=== PATIENT | female | born 1975 | race Caucasian/White ===

== ENCOUNTER → 2020-11-26 07:48 | Outpatient (CLI) | payer OTHER, SELFPAY | PROVIDERS: Internal Medicine Endocrinology, Diabetes & Metabolism; PCP Family Medicine; Referring Provider Nurse Practitioner Adult Health; Visit Provider Nurse Practitioner Adult Health | DX: E88.81 Metabolic syndrome and other insulin resistance (principal) | CPT/HCPCS: 36415; 82533 ==

== ENCOUNTER → 2021-12-12 | Outpatient (CLI) | payer OTHER, SELFPAY ==
--- NOTE | 2021-12-12 | IMM_PTH ---
PATIENT: JIE DOLAN [facility] U#:[id number] AGE/SX: 46/F ROOM: RE12/12/[address]: Dr. Alfonso Peres MD : 1975 BED: DIS: 12/12/2021 SPEC #: [id number] RECD: 12/12/21 12:41 STATUS: DENISE REQ #: [id number] AKIKO: 12/12/21 00:[address]: Alfonso Peres DEPT: IMMUNOHISTOCHEMISTRY RECD BY: Ginny Quintanilla ENTERED: 12/14/21 12:42 SP TYPE: IMMUNO OTHR DR: Francie West PA-C Tissues: Uterine cervix, NOS Procedures: p16 (initial) KI-67 (add) PHYSICIAN & INSTITUTION [place] [id number] SPECIMEN INFORMATION: Tissue Source: Four Quad Cervical Biopsy Clinical Info: LGSIL, HPV positive Specimen Number: [id number] CPT code: 83611, 84495 METHODOLOGY: Deparaffinized sections of prefer/formalin-fixed tissue or PAP/DQ stained slides are incubated with monoclonal/polyclonal antibodies/oligonucleotide probes. Localization is made via biotin free immunoperoxidase method. Appropriate controls are performed and reacted as expected. Results on target cell population are indicated in the following table: RESULTS: ANTIBODY / CLONE RESULT Block C P16 (E6H4) positive, patchy Ki-67 (30-9) positive, low These tests were developed and their performance characteristics determined by [facility]. They may not have been cleared or approved by the U.S. Food and Drug Administration. The FDA has determined that such clearance or approval is not necessary. The above immunohistochemical/dualISH markers are ordered and reviewed by the Pathologist. INTERPRETATION: Cervix, four quad biopsy: Consistent with mild squamous dysplasia, YUMIKO I (LSIL). AM:skip 12/15/2021
--- NOTE | 2021-12-12 14:00 | CER_PTH ---
PATIENT: JIE DOLAN LOC: [facility]#:[id number] AGE/SX: 46/F ROOM: RE12/12/[address]: Dr. Alfonso Peres MD : 1975 BED: DIS: 12/12/2021 SPEC #: [id number] RECD: 12/12/21 17:53 STATUS: DENISE REKell #: [id number] AKIKO: 12/12/21 14:[address]: Alfonso Peres DEPT: SURGICAL PATHOLOGY RECD BY: Ginny Quintanilla ENTERED: 12/13/21 09:39 SP TYPE: CERV OTHR DR: Francie West PA-C Tissues: A - Endocervical B - Uterine cervix, NOS C - Uterine cervix, NOS Procedures: Surgery Specimen Level IV HEADER OPERATION: Colposcopy PRE-OP DIAGNOSIS: LGSIL, HPV positive TISSUE SUBMITTED: A ? Endocervical curettage, B - Cervical polyp, C ? Four-quad cervical MICROSCOPIC DIAGNOSIS A. Endocervix, curettings: Strips of benign superficial endocervix. B. Cervical polyp, polypectomy: Fragments of benign endocervical polyp, inflamed. C. Cervix, four-quadrant biopsy: Mild squamous dysplasia, YUMIKO I (LSIL). Changes consistent with HPV cytopathic effect. See comment. AM:skip 12/14/2021 COMMENT C. Results from immunohistochemistry ([id number]) for surrogate HPV marker (p16) will be reported separately. Case has been reviewed in consultation with Dr. Oreilly who concurs with the above diagnosis. IDC:SJ MICROSCOPIC DESCRIPTION Slides are reviewed. GROSS DESCRIPTION A - Received in fixative is one container labeled with the patient's name and designated endocervical curettage. The specimen consists of multiple fragments of hemorrhagic soft tissue mixed with mucoid tissue that in aggregate measure 2 x 1.5 x 0.1 cm. The specimen is totally submitted in one cassette. B - Received in fixative is one container labeled with the patient's name and designated cervical polyp. The specimen consists of multiple fragments of abdi hemorrhagic mucoid tissue that in aggregate measure 2.5 x 2.5 x 0.2 cm. The specimen is totally submitted in one cassette. C - Received in fixative is one container labeled with the patient's name and designated four-quadrant cervical biopsy. The specimen consists of multiple irregular fragments of light abdi soft tissue that in aggregate measure 1.5 x 0.5 x 0.1 cm. The specimen is totally submitted in one cassette. / SJ:rg 12/13/2021 TC:3 CPT: 16713 x3
== END | disposition home or self-care (01) ==
LOC: LABSPEC 16:33
PROVIDERS: PCP Family Medicine; Visit Provider Obstetrics & Gynecology
DX: R87.612 Low grade squamous intraepithelial lesion on cytologic smear of cervix (LGSIL) (principal); R87.810 Cervical high risk human papillomavirus (HPV) DNA test positive
CPT/HCPCS: 88305; 88341; 88342

== ENCOUNTER 2022-05-15 17:30 | Outpatient (RCR) | payer OTHER, SELFPAY ==
--- NOTE | 2022-03-29 17:58 | HP.PTEVAL_ITS ---
Patient's Visit Information JIE BURGESS is a 46 year old F referred to Physical Therapy by Francie West PA-C with a diagnosis of Back pain with radiculopathy. Date of Evaluation: 03/29/22 Physical Therapist: Emmanuel Carlin, MAMTA, OCS, CSCS - Visit Plan Frequency: 2x /Week Duration: 4-6 Weeks Plan: Suspicious for R hip degenerative changes. 2x/week fro 3-6...please start with MH and rollout to quad adn ITB R, R hip mobs for rotation and extension and flexion and long leg pull. Stretch R hip into ext rotation. Teach hip stabs and mat core strength progressing to yoga stretches as tolerated. - Subjective I have SI joint problem. Sees chiropractor for last 3 months and massage therapist. Went to primary physician and ordered x rays and PT. I do crossfit and has had to scale back. Cannot do full squats. can do 2 days per week. More than that woud make me more painful. Bending down and up make her worse and floor work can make work. Hard to put R shoe on and cross R leg over left. Picking things up off floor is painful. has been hurting for 6-8 months, got worse beginning of summer. Tylenol and ibuprofen help. Sleep is OK, has had tough nights when she is more active. Just moved house and that was a trigger carrying boxes and bending alot. 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 Workout of day scaled at [employer]. Does that 2x/week. Walks quite a bit at work. [employer]uit [employer] at beginning of summer for a number of weeks and it did not help, she felt stiff and inflexible. Hard to get in and out of tub due to immobility. Gets tingly down R foot at times with wrong move like full squat or bend. Mobility bigger issue than pain. - Objective Walks today I without antalgia. Trasnfers I without pain. Steps reciprocally without pain. reflexes 2/3 patella and achilles. sensation WNL in LE to light touch. Strength LE 4+/5 without myotomal problems. core strength 4-/5,. LB AROM is mod limited in extension with some minor R SI pain, flexion is poor and painful R SI, tight, SB are full. flexibility is poor in quad and psoas B. R hip ROM very limited and pianful vs L in rotations 40 ext and 20 IR with pain vs 55 and 25 on L. Extension of hip is 2 degrees r and 5 L with pain R. flexion is 100 R with pain. all pain is posterior at hip today near si joint. SI joint testing is negative. - slump and - SLR. + JAMES and FADDIR on R - Balance/Special Test Scores Oswestry Low Back Score: 16 - Goals Goal 1:: put shoe on crossing leg R Goal Time Frame: 4-6 Weeks Goal 2:: Improve pain by 90% Goal Time Frame: 4-6 Weeks Goal 3:: Oswestry score 10 or less Goal Time Frame: 4-6 Weeks Goal 4:: Cross R leg to tie shoes without pain. Goal Time Frame: 4-6 Weeks Goal 5:: I approp HEP for LB ROM, hip ROM and flex and core and hip stab strength Goal Time Frame: 4-6 Weeks - Rehabilitation Potential Physical Therapy Diagnosis: pain and immobility limiiting gene potter for R hip degeneration Rehabilitation Potential: Fair - Anticipated Interventions Patient/Client Instruction: Educate patient on: Condition, Plan of Care For the Purpose of:: To decrease pain, To increase ROM, To improve muscle performance and motor function Therapeutic Exercise to Include: Strength training, Flexibilty training, Passive ROM, Dynamic Lumbar Stabilization For the Purpose of:: To decrease pain, To increase ROM, To improve nutrient delivery to tissue, To improve muscle performance and motor function Manual Therapy Techniques to Include: Mobilization, Passive ROM, Soft tissue mobilization For the Purpose of:: To increase ROM Thermo therapy (hot pack): Yes For the Purpose of:: To increase ROM, To improve nutrient delivery to tissue Thank you for the opportunity to evaluate your patient. For Medicare and Medicare HMO plans, please review the plan of care and approve it. It will need to be FAXED BACK to us at [phone] for Medicare purposes. For Medicare only, by signing this I certify the plan of care. Please let me know if there are questions or concerns regarding this plan of care. Physician Signature: Date:
--- NOTE | 2022-08-21 12:42 | HP.PT.NRP ---
JIE BURGESS was seen in my office for initial evaluation on 03/29/22. The following Plan of Care was established for this patient: Initial Frequency: 2x /Week Initial Duration: 4-6 Weeks Patient/Client Instruction: Educate patient on: Condition, Plan of Care For the Purpose of:: To decrease pain, To increase ROM, To improve muscle performance and motor function Therapeutic Exercise to Include: Strength training, Flexibilty training, Passive ROM, Dynamic Lumbar Stabilization For the Purpose of:: To decrease pain, To increase ROM, To improve nutrient delivery to tissue, To improve muscle performance and motor function Manual Therapy Techniques to Include: Mobilization, Passive ROM, Soft tissue mobilization For the Purpose of:: To increase ROM Thermo therapy (hot pack): Yes For the Purpose of:: To increase ROM, To improve nutrient delivery to tissue This patient was last seen in our office 05/15/22. Pertinent comments regarding their Physical therapy will appear below: Pt seen 13 visits and was 70% better at last check. She was to f/u 3 weeks later to ensure progress but did not show. At this point, it has been over two months and I will discontinue from my care. At this point I will be discontinuing this patient from physical therapy. I would be happy to see this patient again in the future if found appropriate by the physician. Thank you! Emmanuel Carlin, DPT, OCS, CSCS Balance/Gait/Functional tests - Balance/Special Test Scores Oswestry Low Back Score: 8
== END 2022-05-15 19:00 | disposition home or self-care (01) ==
LOC: PT 17:30
PROVIDERS: PCP Family Medicine; Referring Provider Family Medicine; Visit Provider Family Medicine
DX: M54.10 Radiculopathy, site unspecified (principal)
CPT/HCPCS: 97110; 97140; 97162; 97530

== ENCOUNTER → 2023-03-27 | Outpatient (CLI) | payer OTHER, SELFPAY ==
[2023-04-03 12:08] LABS: HPV APTIMA, High Risk Positive (Negative)
== END | disposition home or self-care (01) ==
LOC: LABSPEC 16:30
PROVIDERS: PCP Family Medicine; Visit Provider Student in an Organized Health Care Education/Training Program
DX: Z12.4 Encounter for screening for malignant neoplasm of cervix (principal)
CPT/HCPCS: 87624; 88175; G0145

== ENCOUNTER → 2023-04-22 | Outpatient (CLI) | payer OTHER, SELFPAY ==
--- NOTE | 2023-04-22 | IMM_PTH ---
PATIENT: JIE DOLAN LOC: [facility] U#:[id number] AGE/SX: 47/F ROOM: RE04/22/[address]: Dr. Anabell Keita DO : 1975 BED: DIS: 04/22/2023 SPEC #: [id number] RECD: 04/24/23 14:34 STATUS: DENISE REQ #: [id number] AKIKO: 04/22/23 00:[address]: Anabell Keita DEPT: IMMUNOHISTOCHEMISTRY RECD BY: Maricruz Mejia ENTERED: 04/24/23 14:35 SP TYPE: IMMUNO OTHR DR: Francie West PA-C Tissues: A - Uterine cervix, NOS B - Endocervical Procedures: p16 (initial) KI-67 (add) PHYSICIAN & INSTITUTION [place] [phone] SPECIMEN INFORMATION: Tissue Source: A - Cervix/endocervix, biopsy Clinical Info: N87.0, R87.810 Specimen Number: [id number] CPT code: 45727, 96676 METHODOLOGY: Deparaffinized sections of prefer/formalin-fixed tissue or PAP/DQ stained slides are incubated with monoclonal/polyclonal antibodies/oligonucleotide probes. Localization is made via biotin free immunoperoxidase method. Appropriate controls are performed and reacted as expected. Results on target cell population are indicated in the following table: RESULTS: ANTIBODY / CLONE RESULT Block A P16 (E6H4) positive, focal, patchy Ki-67 (30-9) positive, low These tests were developed and their performance characteristics determined by [facility]. They may not have been cleared or approved by the U.S. Food and Drug Administration. The FDA has determined that such clearance or approval is not necessary. The above immunohistochemical/dualISH markers are ordered and reviewed by the Pathologist. INTERPRETATION: A. Cervix/endocervix, biopsy: Focal HPV change present. AM:skip 04/25/2023
--- NOTE | 2023-04-22 | CER_PTH ---
PATIENT: JIE DOLAN LOC: [facility] U#:[id number] AGE/SX: 47/F ROOM: RE04/22/[address]: Dr. Anabell Keita DO : 1975 BED: DIS: 04/22/2023 SPEC #: [id number] RECD: 04/22/23 14:23 STATUS: DENISE REKell #: [id number] AKIKO: 04/22/23 00:[address]: Anabell Keita DEPT: SURGICAL PATHOLOGY RECD BY: Ginny Quintanilla ENTERED: 04/23/23 08:55 SP TYPE: CERV OT DR: Francie West PA-C Tissues: A - Uterine cervix, NOS B - Endocervical Procedures: Surgery Specimen Level IV HEADER OPERATION: Colposcopy, endocervical curettage PRE-OP DIAGNOSIS: N87.0, R87.810 TISSUE SUBMITTED: A - #1, B - #2 MICROSCOPIC DIAGNOSIS A. Cervix/endocervix, biopsy: Focal HPV change noted. See comment. B. Endocervix, curettings: Strips of benign superficial endocervix. AM:skip 04/24/2023 COMMENT A. Results from immunohistochemistry ([id number]) for surrogate HPV marker (p16) will be reported separately. MICROSCOPIC DESCRIPTION Slides are reviewed. GROSS DESCRIPTION A - Received in fixative is one container labeled with the patient's name and designated #1. The specimen consists of multiple irregular fragments of light abdi soft tissue that in aggregate measure 1.5 x 0.5 x 0.1 cm. The specimen is totally submitted in one cassette. B - Received in fixative is one container labeled with the patient's name and designated #2. The specimen consists of multiple irregular fragments of abdi-pink soft tissue mixed with mucoid tissue that in aggregate measure 2.5 x 1.0 x 0.1 cm. The specimen is totally submitted in one cassette. / RAJ:skip 04/23/2023 TC:3 CPT: 20360 x2
== END | disposition home or self-care (01) ==
PROVIDERS: PCP Family Medicine; Visit Provider Student in an Organized Health Care Education/Training Program
DX: N87.0 Mild cervical dysplasia (principal); R87.810 Cervical high risk human papillomavirus (HPV) DNA test positive
CPT/HCPCS: 88305; 88341; 88342

== ENCOUNTER 2025-08-11 13:26 | Emergency (ER) | payer OTHER, SELFPAY ==
[2025-08-11 13:27] VITALS: BP 148/84; PULSE 84; RESP 16; TEMP 35.6; O2SAT 98; BMI 44.1
--- NOTE | 2025-08-11 14:07 | EKG12_ITS ---
Test Reason : Blood Pressure : */* mmHG Vent. Rate : 73 BPM Atrial Rate : 73 BPM P-R Int : 140 ms QRS Dur : 80 ms QT Int : 396 ms P-R-T Axes : 47 44 11 degrees QTcB Int : 436 ms Normal sinus rhythm Nonspecific ST abnormality Abnormal ECG Confirmed by Rush Sim ([id number]), news video editor KRISTA ONTIVEROS ([id number]) on 08/16/2025 9:10:12 AM Referred By: Confirmed By: Rush Sim
[2025-08-11 14:27] LABS: Hematocrit 40.6 % (37-47); Hemoglobin 13.1 g/dL (12.0-15.0); Immature Granulocytes Count 0.040 X10^3/uL (0.0-0.0); Mean Corp Hgb Conc 32.3 g/dL (32-36); Mean Corpuscular Volume 80.4 fL (81-99); Mean Platelet Vol. 10.3 fl (6.2-12.0); NRBC Flagged by Analyzer 0 % (0-5); Platelet Count 408 K/mm3 (150-450); RBC Distribution Width CV 14.0 % (11.6-14.6); RBC Distribution Width SD 40.2 fl (35.1-43.9); Red Blood Count 5.05 M/mm3 (4.2-5.4); White Blood Count 9.7 K/mm3 (4.4-11.0)
[2025-08-11 15:00] LABS: Anion Gap 10 (7-18); BUN 10 mg/dL (4-19); BUN/Creat Ratio 13.3 RATIO (10-20); Calcium,Total 9.3 mg/dL (7.6-11.0); Carbon Dioxide 27.0 mmol/L (20.0-29.0); Chloride 103 mmol/L (96-106); Estimated Creatinine Clearance 105.72 ml/min (50-250); Glucose 125 mg/dL (70-99); Potassium 4.2 mmol/L (3.5-5.1)
[2025-08-11 15:23] VITALS: PULSE 76; RESP 17; O2SAT 98
[2025-08-11 15:41] VITALS: BP 134/84; BP 135/73; BP 140/80; PULSE 70; PULSE 75; PULSE 80
--- NOTE | 2025-08-11 15:41 | CT_ITS ---
PROCEDURE: CT BRAIN/HEAD WITHOUT CONTRAST; CTA HEAD AND NECK W/ CONTRAST 08/11/2025 REASON FOR EXAM: DIZZINESS TECHNIQUE: Procedure Code: CTBR; CTCTA.HDNCK Modality: CT Procedure: BRAIN/HEAD WITHOUT CONTRAST; CTA HEAD AND NECK W/ CONTRAST Coronal and Sagittal reconstructions were provided. 3D post processing was performed. 90 cc of Isovue 370 intravenous contrast was administered. One or more dose reduction techniques were used (e.g., Automated exposure control, adjustment of the mA and/or kV according to patient size, use of iterative reconstruction technique. RADIATION DOSE SUMMARY: DLP: 1473.61 mGycm COMPARISON: None. FINDINGS: CTA HEAD: Patent intracranial arterial vasculature. No large vessel occlusion, hemodynamically significant stenosis, saccular aneurysm, or vascular malformation identified. CTA NECK: Conventional aortic arch branching. Bilateral cervical carotid and codominant vertebral arteries are patent, normal in course and caliber. No stenosis, aneurysm or dissection. NONCONTRAST CT HEAD: No acute intracranial hemorrhage, extra-axial collection, mass effect or evidence of acute infarct. Ventricles and subarachnoid spaces are normal in size. Orbital contents are unremarkable. Intact skull base and calvarium. Clear paranasal sinuses and mastoid air cells. CT/Brain/Head without Contrast IMPRESSION: 1. No acute intracranial abnormality. 2. Normal CTA head/neck. No stenosis or other significant abnormality. Reading Location: [id number]
--- NOTE | 2025-08-11 15:41 | CT_ITS ---
PROCEDURE: CT BRAIN/HEAD WITHOUT CONTRAST; CTA HEAD AND NECK W/ CONTRAST 08/11/2025 REASON FOR EXAM: DIZZINESS TECHNIQUE: Procedure Code: CTBR; CTCTA.HDNCK Modality: CT Procedure: BRAIN/HEAD WITHOUT CONTRAST; CTA HEAD AND NECK W/ CONTRAST Coronal and Sagittal reconstructions were provided. 3D post processing was performed. 90 cc of Isovue 370 intravenous contrast was administered. One or more dose reduction techniques were used (e.g., Automated exposure control, adjustment of the mA and/or kV according to patient size, use of iterative reconstruction technique. RADIATION DOSE SUMMARY: DLP: 1473.61 mGycm COMPARISON: None. FINDINGS: CTA HEAD: Patent intracranial arterial vasculature. No large vessel occlusion, hemodynamically significant stenosis, saccular aneurysm, or vascular malformation identified. CTA NECK: Conventional aortic arch branching. Bilateral cervical carotid and codominant vertebral arteries are patent, normal in course and caliber. No stenosis, aneurysm or dissection. NONCONTRAST CT HEAD: No acute intracranial hemorrhage, extra-axial collection, mass effect or evidence of acute infarct. Ventricles and subarachnoid spaces are normal in size. Orbital contents are unremarkable. Intact skull base and calvarium. Clear paranasal sinuses and mastoid air cells. CT/CTA Head AND Neck W/ Contrast IMPRESSION: 1. No acute intracranial abnormality. 2. Normal CTA head/neck. No stenosis or other significant abnormality. Reading Location: [id number]
--- NOTE | 2025-08-11 15:53 | EX.ED.DYSGE1 ---
HPI History of Present Illness Chief Complaint: Dizziness Narrative Narrative: Chief complaint and HPI: 50-year-old female with past medical history of HTN, depression, anxiety presents for evaluation of dizziness. Patient states several weeks ago she had a viral illness of her sinuses. States this has since resolved. States she was washing her hair today when she turned her head and developed dizziness. She describes it as room spinning. Dizziness has already improved. Associated symptom is mild headache that radiates into her neck. Patient states a week ago she had a fall down 4 steps and since then has been having muscle soreness in her back as well as her neck. States symptoms are already improving. She denies any fever, chills, shortness of breath, chest pain, abdominal pain, nausea, vomiting, weakness, focal deficits, numbness or tingling. Review of systems: See HPI Medications: As listed on the chart Allergies: As listed on the chart PFSH: Per chart Vital signs: As listed on the chart. Reviewed. Physical exam: Gen: A&O x3, NAD Head: Normocephalic, atraumatic Eyes: No sclera icterus, conjunctiva clear, PERRL, EOMI, no nystagmus-none with positional changes well ENT: TMs clear BL, moist mucous membranes, posterior oropharynx unremarkable, uvula midline, tonsils not enlarged, no facial asymmetry Neck: Trachea midline, No JVD, Full ROM, No meningismus, no midline spinal tenderness, no bony step-offs CV: RRR, no murmurs, no peripheral edema Resp: Lungs CTA BL, no w/r/c GI: Abd soft, non-distended, non-tender, no r/r/g Musc: Full ROM, no deformity, strength +5/5 in all extremities, no pronator drift, no ataxia Skin: Warm, dry Neuro: Alert, oriented, grossly intact, sensation intact, no focal deficits Psych: Cooperative, appropriate mood and affect [facility] Medical History (Updated 08/11/25 @ 15:13 by Leny Loredo) HTN (hypertension) Depression Anxiety Allergy/AdvReac Type Severity Reaction Status Date / Time No Known Allergies Allergy Verified 08/11/25 13:27 Social History (Updated 08/11/25 @ 15:13 by Leny Loredo) household members: spouse Smoking Status: Never smoker EXAM Physical Exam Const Vital Signs: 08/11/25 13:27 08/11/25 15:14 08/11/25 15:23 Temperature 96.0 F L Temperature Source Temporal Pulse Rate 84 76 Pulse Rate [Lying] Pulse Rate [Sitting (for 1 minute prior to obtaining)] Pulse Rate [Standing (for 1 minute prior to obtaining)] Respiratory Rate 16 17 Blood Pressure 148/84 H Blood Pressure [Lying] Blood Pressure [Sitting (for 1 minute prior to obtaining)] Blood Pressure [Standing (for 1 minute prior to obtaining)] Blood Pressure Mean 105 Blood Pressure Mean [Lying] Blood Pressure Mean [Sitting (for 1 minute prior to obtaining)] Blood Pressure Mean [Standing (for 1 minute prior to obtaining)] Pulse Ox 98 98 Oxygen Delivery Method Room Air Room Air Room Air 08/11/25 15:41 08/11/25 17:00 Temperature Temperature Source Pulse Rate 71 Pulse Rate [Lying] 70 Pulse Rate [Sitting (for 1 minute prior to obtaining)] 75 Pulse Rate [Standing (for 1 minute prior to obtaining)] 80 Respiratory Rate 16 Blood Pressure 140/80 H Blood Pressure [Lying] 140/80 H Blood Pressure [Sitting (for 1 minute prior to obtaining)] 135/73 H Blood Pressure [Standing (for 1 minute prior to obtaining)] 134/84 H Blood Pressure Mean 100 Blood Pressure Mean [Lying] 100 Blood Pressure Mean [Sitting (for 1 minute prior to obtaining)] 93 Blood Pressure Mean [Standing (for 1 minute prior to obtaining)] 100 Pulse Ox 98 Oxygen Delivery Method MDM MDM MDM Narrative Medical decision making narrative: 50-year-old female with past medical history of HTN, depression, anxiety presents for evaluation of dizziness. Patient states several weeks ago she had a viral illness of her sinuses. States this has since resolved. States she was washing her hair today when she turned her head and developed dizziness. She describes it as room spinning. Dizziness has already improved. Associated symptom is mild headache that radiates into her neck. Patient states a week ago she had a fall down 4 steps and since then has been having muscle soreness in her back as well as her neck. States symptoms are already improving. She denies any fever, chills, shortness of breath, chest pain, abdominal pain, nausea, vomiting, weakness, focal deficits, numbness or tingling. On presentation, patient no acute distress. See physical exam findings. Differential diagnosis includes but is not limited to peripheral vertigo, electrolyte abnormality, dehydration, anemia, arrhythmia, UTI, suspect less likely intracranial abnormality or central process. NS bolus and meclizine ordered. Laboratory workup ordered including imaging of the head. CBC without leukocytosis or anemia. Platelets unremarkable. BMP unremarkable. Magnesium unremarkable. CT of the head negative for any acute intracranial abnormality. CTA head and neck without any stenosis or significant abnormality. Orthostatic vital signs negative. UA positive for UTI however this is not the cleanest sample with 10-25 squamous epithelial cells. Patient not having any UTI symptoms. I discussed the benefits of treatment versus culture. Patient opted for culture. Will not treat at this time. Troponin unremarkable x 2. Patient ambulated without difficulty. On reevaluation her dizziness has resolved. Suspect peripheral vertigo. Recommend following up with primary care physician. Return back to ED symptoms change or worsen. Will give prescription for meclizine. Patient affirmed understand the plan. Patient stable to discharge home. EKG: Interpreted by me/EM physician: EKG shows normal sinus rhythm with nonspecific ST changes. Heart rate 73. No QTc prolongation. Diagnostic: Interpreted by me/EM physician: Chest x-ray with cardiomegaly. No pneumonia, pneumothorax, effusion. Radiology in agreement. Impression: 1. Vertigo Lab Data Labs: Laboratory Results - last 24 hr 08/11/25 08/11/25 08/11/25 14:13 16:01 16:40 WBC 9.7 RBC 5.05 Hgb 13.1 Hct 40.6 MCV 80.4 L MCH 25.9 L MCHC 32.3 RDW Std Deviation 40.2 RDW Coeff of [place] 14.0 Plt Count 408 MPV 10.3 Immature Gran % (Auto) 0.400 Neut % (Auto) 78.5 H Lymph % (Auto) 15.3 L [place] % (Auto) 4.8 Eos % (Auto) 0.7 Baso % (Auto) 0.3 Absolute Neuts (auto) 7.6 Absolute Lymphs (auto) 1.48 Nucleated RBC % 0 Sodium 140 Potassium 4.2 Chloride 103 Carbon Dioxide 27.0 Anion Gap 10 BUN 10 Creatinine 0.77 Estim Creat Clear Calc 105.72 Est GFR (MDRD) Non-Af 95 BUN/Creatinine Ratio 13.3 Glucose 125 H Calcium 9.3 Magnesium 2.0 Troponin T High Sens < 6 Troponin T Hi Sens 2 Hr < 6 Urine Color Yellow Urine Clarity Cloudy Urine pH 6.0 Ur Specific [place] 1.020 Urine Protein 15 H Urine Glucose (UA) Normal Urine Ketones Negative Urine Occult Blood Negative Urine Nitrite Negative Urine Bilirubin Negative Urine Urobilinogen Normal Ur Leukocyte Esterase 500 H Urine RBC 0-5 SEEN Urine WBC 25-50 SEEN Ur Squamous Epith Cells 10-25 SEEN Urine Bacteria 2+ Urine Mucus 0 SEEN Radiography Diagnostic Testing: Clinical Impression(s) from Imaging Studies Brain CT 08/11/25 15:41 IMPRESSION: 1. No acute intracranial abnormality. 2. Normal CTA head/neck. No stenosis or other significant abnormality. Reading Location: [facility] Head/Neck CTA 08/11/25 15:41 IMPRESSION: 1. No acute intracranial abnormality. 2. Normal CTA head/neck. No stenosis or other significant abnormality. Reading Location: [facility] Chest X-Ray 08/11/25 16:10 IMPRESSION: Cardiomegaly. No acute pulmonary disease. Reading Location: [facility] Discharge Plan Triage Chief Complaint: Dizziness Other Complaint: Headache ED Provider: Mario Tesfaye Dx/Rx/DC Orders Primary Care Provider: Francie West Referrals: Francie West PA-C [Primary Care Provider, Medical] Print Language: Palestinian
--- OUTSIDE RECORDS SUMMARY | 2025-08-11 15:53 | XMS RPT_ITS | CCD ---
Author Organization [facility] CliniSypr Care Team Providers Care Litigation Legal Secretary Name Role Phone TOM Gilbert Primary Care Provider TOM Gilbert Referring Provider DIANA Khalil Attending Provider [phone] [place] Francie ORTIZ Primary Care Unavailable Anabell Keita Attending Unavailable Anabell Keita Attending Unavailable Francie Gilbert Primary Care Unavailable Anabell Keita Attending Unavailable Anabell Keita Referring Unavailable Francie Gilbert Primary Care Unavailable Unavailable Primary Care Provider Unavailabl e BRETT, FRANCIE Admitting Unavailable EARLVILLE, FRANCIE Primary Care Unavailable EARLVILLE, FRANCIE Consulting Unavailable EARLVILLE, FRANCIE Attending Unavailable PROVIDER, UNKNOWN Consulting Unavailable EARLVILLE, FRANCIE Primary Care Unavailable EARLVILLE, FRANCIE Consulting Unavailable EARLVILLE, FRANCIE Attending Unavailable EARLVILLE, FRANCIE Admitting Unavailable PROVIDER, UNKNOWN Consulting Unavailable ADIA POTTERY MACHINE OPERATOR, DIOR MENENDEZ Attending Unavaila ble PHYSICIAN, NOT RECORDED Primary Care Unavaila Joon Wyatt Attending Provider [place] Francie SANTOS Primary Care Provider Brett SANTOS, Francie Attending Provider [phone] Brett SANTOS, Francie Referring Provider Joon Olivas Attending Unavailable [place] Francie ORTIZ Referring Unavailable [place] DIANA, Francie Primary Care Unavailable [place] Francie ORTIZ Attending Unavailable SAVI ANNE Attending Unavailable SAVI ANNE Referring Unavailable [place] Francie ORTIZ Primary Care Unavailable EARNESTINE ZHAO Referring Unavailable BORA SENIOR Attending Unavailable SONJA MATAMOROS Referring Unavailable SONJA MATAMOROS Attending Unavailable Medications Current Medications Medication Drug Class(es) Dates Sig (Normalized) Sig (Original) amoxicillin 500 mg oral tablet (1 source) Penicillin-class Antibacterial Start: 08-03-2024 take 1 tablet by mouth three times daily Amoxicillin 500 mg tablet Active 500 mg PO THREE TIMES A DAY August 03, 2024 1:00am ARIPiprazole 5 mg oral tablet (15 sources) Atypical Antipsychotic Start: 02-14-2024 take 1 tablet by mouth once ARIPiprazole (ABILIFY) 5 mg tablet Take 1 tablet by mouth every afternoon. 02/14/2024 Active FLUoxetine 40 mg oral capsule (15 sources) Serotonin Reuptake Inhibitor Start: 02-14-2024 take 1 capsule by mouth once FLUoxetine (PROZAC) 40 mg capsule Take 1 capsule by mouth every afternoon. 02/14/2024 Active 24 hr metFORMIN hydrochloride 500 mg extended release oral tablet (15 sources) Biguanide Start: 08-03-2024 Metformin 500 mg tablet extended release 24 hr Active 1000 mg PO TWICE A DAY August 03, 2024 1:00am Start: 02-14-2024 [facility] metFORMIN ER (GLUCOPHAGE XR) 500 mg 24 hr tablet Take 2 tablets by mouth every 12 hours. 02/14/2024 Active 24 hr metoprolol succinate 50 mg extended release oral tablet (15 sources) beta-Adrenergic Claudia Start: 08-03-2024 take 1 tablet by mouth once daily Metoprolol Succinate 50 mg tablet extended release 24 hr Active 50 mg PO daily August 03, 2024 1:00am Start: 02-14-2024 take 1 tablet by katherine every hour metoprolol succinate ER (TOPROL XL) 50 mg 24 hr tablet Take 1 tablet by mouth every afternoon. 02/14/2024 Active spironolactone 50 mg oral tablet (15 sources) Aldosterone Antagonist Start: 08-03-2024 take 1 tablet by mouth twice daily Spironolactone 50 mg tablet Active 50 mg PO TWICE A DAY August 03, 2024 1:00am Start: 02-14-2024 take 1 tablet by katherine th every twelve hours spironolactone (ALDACTONE) 50 mg tablet Take 1 tablet by mouth every 12 hours. 02/14/2024 Active valACYclovir 1000 mg oral tablet (1 source) Herpesvirus Nucleoside Analog DNA Polymerase Inhibitor, Herpes Simplex Virus Nucleoside Analog DNA Polymerase Inhibitor, Herpes Zoster Virus Nucleoside Analog DNA Polymerase Inhibitor Start: 02-08-2025 End: 02-18-2025 take 1 tablet by mouth twice daily valACYclovir (VALTREX) 1 gram tablet Take 1 tablet by mouth two times a day for 10 days. 20 tablet 02/08/2025 02/18/2025 Active Completed/Discontinued Medications Medication Drug Class(es) Dates Sig (Normalized) Sig (Original) amoxicillin 875 mg / clavulanate 125 mg oral tablet (3 sources) Penicillin-class Antibacterial Start: 06-18-2021 End: 06-28-2021 take 1 tablet by mouth twice daily at mealtime Amoxicillin-Pot Clavulanate (Augmentin) 875-125 mg tablet Discontinued 1 TABLET PO TWICE A DAY 31 05June 18, 2021 12:00am June 28, 2021 1:01am take with food sertraline 100 mg oral tablet (1 source) Serotonin Reuptake Inhibitor End: 04-16-2024 take 1 tablet by mouth once daily sertraline (ZOLOFT) 100 mg ORAL tablet Take one(1) tablet daily. 04/16/2024 Discontinued (Other) Problems Active Problems Problem Classification Problem Date Documented Date Episodic/Chronic Diabetes mellitus without complication (1 source) Impaired fasting glucose; Translations: [Impaired fasting glucose] Onset: 01-18-2025 Episodic Disorders of lipid metabolism (2 sources) Pure hyperglyceridemia; Translations: [Pure hyperglyceridemia] Onset: 09-22-2024 Chronic Essential hypertension (1 source) Essential (primary) hypertension; Translations: [Essential (primary) hypertension] Onset: 09-22-2024 Chronic Genitourinary symptoms and ill-defined conditions (1 source) Unspecified symptoms and signs involving the genitourinary system; Translations: [Unspecified symptoms and signs involving the genitourinary system] Onset: 09-22-2024 Episodic Immunizations and screening for infectious disease (6 sources) Patient encounter status; Translations: [Encounter for screening for COVID-19] 06-18-2021 Episodic Nutritional deficiencies (1 source) Vitamin D deficiency, unspecified; Translations: [Vitamin D deficiency, unspecified] Onset: 01-18-2025 Chronic Other endocrine disorders (1 source) Polycystic ovarian syndrome; Translations: [Polycystic ovarian syndrome] Onset: 01-18-2025 Chronic Other female genital disorders (1 source) Mild cervical dysplasia; Translations: [Mild cervical dysplasia] Onset: 06-27-2023 Episodic Other nutritional; endocrine; and metabolic disorders (1 source) Severe obesity; Translations: [Morbid (severe) obesity due to excess calories] 04-16-2024 Chronic Other screening for suspected conditions (not mental disorders or infectious disease) (9 sources) Encounter for screening mammogram for malignant neoplasm of breast; Translations: [Encounter for screening for malignant neoplasm of cervix] Onset: 06-10-2023 04-16-2024 Episodic Other skin disorders (1 source) Hirsutism; Translations: [Hirsutism] Onset: 01-18-2025 Episodic Other upper respiratory infections (3 sources) Sinusitis; Translations: [Chronic sinusitis, unspecified] 06-18-2021 Chronic Viral infection (2 sources) 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; Translations: [Herpesviral vulvovaginitis] Onset: 02-08-2025 02-08-2025 Chronic Viral infection (4 sources) Disease caused by 2019-nCoV; Translations: [COVID-19] Episodic Past or Other Problems Problem Classification Problem Date Documented Date Episodic/Chronic Cancer of cervix (15 sources) Low grade squamous intraepithelial lesion on cervical Papanicolaou smear; Translations: [Low grade squamous intraepithelial lesion on cytologic smear of cervix (LGSIL)] Onset: 03-12-2023 04-17-2024 Episodic Sexually transmitted infections (not HIV or hepatitis) (12 sources) Human papillomavirus deoxyribonucleic acid test positive, high risk on cervical specimen; Translations: [Cervical high risk human papillomavirus (HPV) DNA test positive] Onset: 04-24-2024 04-16-2024 Episodic Results Test Name Value Interpretation Reference Range Facility [facility] 2024 [facility] * * *Final Report* * * DATE OF EXAM: May 18 2025 3:52PM [id number] - [facility] / PROCEDURE REASON: Abnormal mammogram * * * * Physician Interpretation * * * * RESULT: [place] [address] #[id number] - [facility]ARDIN #[id number] - CEM US BREAST LTD RT HISTORY: 49 year-old patient presents for diagnostic evaluation of the finding(s) described on prior mammogram in the right breast. Patient is asymptomatic in the left breast. Patient states no personal history of breast cancer. COMPARISON STUDIES: The present examination has been compared to prior imaging studies dated 04/17/2024 (mammogram), 05/13/2024 (ultrasound) and 05/13/2024 (mammogram). MAMMOGRAM TECHNIQUE: The study was acquired using full field digital technology and interpreted from soft copy. Digital Breast Tomosynthesis (DBT) images were obtained and used to assist in the interpretation of this examination. MAMMOGRAM FINDINGS: The breasts are heterogeneously dense, which may obscure small masses. Finding 1: There are multiple scattered punctate calcifications in the upper outer quadrant of the right breast. Finding 2: There is a stable asymmetry in the anterior depth inferior left breast. This likely represents fibroglandular tissue. ULTRASOUND TECHNIQUE: Targeted ultrasound of the indicated area was performed. Ibarra scale images were saved. ULTRASOUND FINDINGS: Finding 3: There is a stable oval parallel mass with circumscribed margins measuring 0.7 cm at 5 o'clock, 5 cm from the nipple in the right breast. Internal echotexture is hypoechoic. This resembles a fibroadenoma. IMPRESSION: Finding 1: The calcifications in the upper outer quadrant of the right breast are probably benign. Follow-up with diagnostic mammogram is recommended in 6 months. Finding 2: The stable asymmetry in the anterior depth inferior left breast is probably benign. This likely represents fibroglandular tissue. Follow-up with diagnostic mammogram is recommended in 6 months. Finding 3: The 0.7 cm oval parallel mass in the right breast at 5 o'clock, 5 cm from the nipple is probably benign. This resembles a fibroadenoma. Follow-up with diagnostic mammogram and ultrasound is recommended in 6 months. BI-RADS Category 3: Probably Benign RISK: Based on the Tyrer-Cuzick (TC) risk assessment model, this patient has a 11.3% lifetime risk of developing breast cancer, meaning they are at average risk for developing breast cancer. However, this is only an estimate based on available history provided on the patient's questionnaire. We encourage all patients to talk with their providers about these results, further recommendations for managing breast health, and appropriate supplemental screening options if the patient has dense breast tissue. Interpreting Radiologist: Bairon Berg M.D. Electronically signed on: 05/18/2025 Automobile Damage Appraiser: MELLISA Transcribe Date/Time: May 18 2025 3:13P Dictated by: BAIRON BERG MD This examination was interpreted and the report reviewed and electronically signed by: BAIRON BERG MD on May 18 2025 4:32PM EST [id number] Normal [facility] US BREAST LTD RTon 05-18 [facility] US BREAST LTD RT * * *Final Report* * * DATE OF EXAM: May 18 2025 4:22PM [id number] - [facility] US BREAST LTD RT / PROCEDURE REASON: Abnormal mammogram * * * * Physician Interpretation * * * * [place] [address] #[id number] - [facility] DIAG W AUDREY WILFRED #[id number] - [facility] [employer] BREAST [email or web address] RT HISTORY: 49 year-old patient presents for diagnostic evaluation of the finding(s) described on prior mammogram in the right breast. Patient is asymptomatic in the left breast. Patient states no personal history of breast cancer. COMPARISON STUDIES: The present examination has been compared to prior imaging studies dated 04/17/2024 (mammogram), 05/13/2024 (ultrasound) and 05/13/2024 (mammogram). MAMMOGRAM TECHNIQUE: The study was acquired using full field digital technology and interpreted from soft copy. Digital Breast Tomosynthesis (DBT) images were obtained and used to assist in the interpretation of this examination. MAMMOGRAM FINDINGS: The breasts are heterogeneously dense, which may obscure small masses. Finding 1: There are multiple scattered punctate calcifications in the upper outer quadrant of the right breast. Finding 2: There is a stable asymmetry in the anterior depth inferior left breast. This likely represents fibroglandular tissue. ULTRASOUND TECHNIQUE: Targeted ultrasound of the indicated area was performed. Ibarra scale images were saved. ULTRASOUND FINDINGS: Finding 3: There is a stable oval parallel mass with circumscribed margins measuring 0.7 cm at 5 o'clock, 5 cm from the nipple in the right breast. Internal echotexture is hypoechoic. This resembles a fibroadenoma. IMPRESSION: Finding 1: The calcifications in the upper outer quadrant of the right breast are probably benign. Follow-up with diagnostic mammogram is recommended in 6 months. Finding 2: The stable asymmetry in the anterior depth inferior left breast is probably benign. This likely represents fibroglandular tissue. Follow-up with diagnostic mammogram is recommended in 6 months. Finding 3: The 0.7 cm oval parallel mass in the right breast at 5 o'clock, 5 cm from the nipple is probably benign. This resembles a fibroadenoma. Follow-up with diagnostic mammogram and ultrasound is recommended in 6 months. BI-RADS Category 3: Probably Benign RISK: Based on the Tyrer-Cuzick (TC) risk assessment model, this patient has a 11.3% lifetime risk of developing breast cancer, meaning they are at average risk for developing breast cancer. However, this is only an estimate based on available history provided on the patient's questionnaire. We encourage all patients to talk with their providers about these results, further recommendations for managing breast health, and appropriate supplemental screening options if the patient has dense breast tissue. Interpreting Radiologist: Bairon Berg M.D. Electronically signed on: 05/18/2025 Automobile Damage Appraiser: MELLISA Transcribe Date/Time: May 18 2025 4:09P Dictated by : BAIRON BERG MD This examination was interpreted and the report reviewed and electronically signed by: BAIRON BERG MD on May 18 2025 4:32PM EST [id number] Normal [facility] CNOVon 02-08-2025 CNOV Office Visit (OBGYWM ) TOMA ADAMS ([id number]) 1975 F Date Time Provider Department 02/08/25 11:10 AM BORA SENIOR OBGYWM During your visit today, we recorded the following information about you: Blood pressure Weight Last Period 142/84 110.2 kg 11/11/23 Bora Senior MD 02/08/2025 11:23 AM Signed Business Support Assistant offered: Patient accepts, visit chaperoned by Michelle Momin MA. Toma Adams is a 49 year old female who presents for problem visit with a 10 day hx of a painful labial lesion on the left labia. . 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 History Comments: Sexual Activity: Yes; Male Contraception: Not used PAST MEDICAL HISTORY Diagnosis Date Cervical high risk HPV (human papillomavirus) test positive 04/03/2023 LGSIL on Pap smear of cervix 04/03/2023 PAST SURGICAL HISTORY Procedure Laterality Date PAST SURGICAL HISTORY OF sphincterplasty PAST SURGICAL HISTORY OF Left wrist surgery VAGINOSCOPY 04/2023 negative FAMILY HISTORY Problem Relation Age of Onset Diabetes Mother Hypertension Father Cancer Maternal Grandmother Cancer Maternal Grandfather Cancer Paternal Grandmother Cancer Paternal Grandfather Social History Tobacco Use Smoking status: Never Smokeless tobacco: Never Vaping Use Vaping status: Never Used Substance Use Topics Alcohol use: No Drug use: No Current Outpatient Medications Medication Sig spironolactone (ALDACTONE) 50 mg tablet Take 1 tablet by mouth every 12 hours. metoprolol succinate ER (TOPROL XL) 50 mg 24 hr tablet Take 1 tablet by mouth every afternoon. ARIPiprazole (ABILIFY) 5 mg tablet Take 1 tablet by mouth every afternoon. metFORMIN ER (GLUCOPHAGE XR) 500 mg 24 hr tablet Take 2 tablets by mouth every 12 hours. FLUoxetine (PROZAC) 40 mg capsule Take 1 capsule by mouth every afternoon. No current facility-administered medications for this visit. Allergies As of Date: 02/08/2025 (No Known Allergies) Fully Assessed 02/08/2025 REVIEW OF SYSTEMS Abdomen: No bloating, early satiety, indigestion, or increased flatulence. No abdominal pain, nausea, vomiting, diarrhea, or constipation. Bladder: No dysuria, gross hematuria, urinary frequency, urinary urgency, or incontinence. Breast: No breast lumps, nipple d/c, overlying skin changes, redness or skin retraction. Expanded ROS: N/A Allergies and current medication updated:Yes SENSITIVE EXAM: The sensitive examination was discussed with the Patient or Patient's Authorized Robotics Specialist. As applicable, any other physician, advance practice provider, medical student, or other health professional student that will be observing or involved in the sensitive examination for educational or training purposes was discussed with the Patient or Authorized Robotics Specialist. The Patient or Authorized Robotics Specialist has agreed to proceed with the sensitive examination. (Sensitive examination includes inspection and/or palpation of the breasts, pelvis, prostate and anorectal regions). EXAM: BP 142/84 Wt 243 lb (110.2kg) LMP 11/11/2023 GENERAL: pleasant, female in no apparent distress external genitalia with herpetic appearing lesion on the left labia major. ASSESSMENT AND PLAN: Herpes culture Valtrex pending culture Assessment AND Plan Bora Senior MD Allergies As of Date: 02/08/2025 (No Known Allergies) Date Reviewed: 02/08/2025 Reviewed by: Michelle Momin MA - Fully Assessed Reason for Visit: Vaginal Problem [117] Primary Visit Diagnosis:Herpes, vulvar [A60.04] Order(s):HERPES SIMPLEX VIRUS (HSV-1 AND HSV-2) AND VARICELLA ZOSTER VIRUS (VZV), NAAT, LESION SWAB [SQHSVVZV] Order #: [id number] FUTURE valACYclovir (VALTREX) 1 gram tabletTake 1 tablet by mouth two times a day for 10 days.Disp: 20 tabletRfl: 0 HERPES SIMPLEX VIRUS (HSV-1 AND HSV-2) AND VARICELLA ZOSTER VIRUS (VZV), NAAT, LESION SWAB [[id number]] Order #: [id number]. #:[id number] Prescriptions as of 02/08/2025 - valACYclovir (VALTREX) 1 gram tablet Take 1 tablet by mouth two times a day for 10 days. - spironolactone (ALDACTONE) 50 mg tablet Take 1 tablet by mouth every 12 hours. - metoprolol succinate ER (TOPROL XL) 50 mg 24 hr tablet Take 1 tablet by mouth every afternoon. - ARIPiprazole (ABILIFY) 5 mg tablet Take 1 tablet by mouth every afternoon. - metFORMIN ER (GLUCOPHAGE XR) 500 mg 24 hr tablet Take 2 tablets by mouth every 12 hours. - FLUoxetine (PROZAC) 40 mg capsule Take 1 capsule by mouth every afternoon. Problem List As Of Date 02/08/2025 Noted Resolved LGSIL on Pap smear of cervix [R87.612] 03/2023 Cervical high risk HPV (human papillomaviru (more content not included)... Normal [facility] HSV+VZV DNA VIKTORIA+probe Ql (Un sp spec)on 02-08-2025 HSV 1 DNA VIKTORIA+probe Ql (Unsp spec) Detected Abnormal Not Detected [facility] Comment on above: Order Comment: Speci men Type: SWAB Ordering Facility: [facility] Address: [address] [place] [address] Performed By: #### 3 3027-4 #### [facility] CLIA [id number] [address] [place] [address] [place] HSV 2 DNA VIKTORIA+probe Ql (Unsp spec) Not detected Normal Not Detected [facility] Comment on above: Order Comment: Speci men Type: SWAB Ordering Facility: [facility] Address: [address] [place] [address] Performed By: #### 3 3027-4 #### [facility] CLIA [id number] [address] [place] [address] [place] VZV DNA VIKTORIA+probe Ql (Unsp spec) Not detected Normal Not Detected [facility] Comment on above: Order Comment: Speci men Type: SWAB Ordering Facility: [facility] Address: [address] [place] [address] Performed By: #### 3 3027-4 #### [facility] CLIA [id number] [address] [place] [address] [place] Androstenedioneon 01-21-2025 ANDROSTENEDIONE 110 ng/dL Normal 41-262 [facility] Comment on above: Order Comment: Test( s) [id number] LCMS was developed and its performance characteristics determined by [facility]. It has not been cleared or approved by the Food and Drug Administration. Result Comment: Perf ormed at: - [facility] [id number] Mental Health Therapist: Kyle Diggs PhD, Phone: [phone] Performed at: [address] [id number] Mental Health Therapist: Cathy Mullins MD, Phone: [phone] Performed By: #### L 3100.5310, L501.9985, L506.1001, L501.4100, L501.4405, L500.2500, L3300.1500, L3300.4450 #### [facility] [address] [place], [address] DHEA Sulfateon 01-21-2025 DHEA SULFATE 148.0 ug/dL Normal 41.2-243.7 [facility] Comment on above: Order Comment: Test( s) [id number] LCMS was developed and its performance characteristics determined by [facility]. It has not been cleared or approved by the Food and Drug Administration. N Performed By: #### L 3100.5310, L501.9985, L506.1001, L501.4100, L501.4405, L500.2500, L3300.1500, L3300.4450 #### [facility] [address] [place], [place], [id number] [phone] Testosterone, Total / Freeon 01-21-2025 TESTOSTER,FREE 0.91 ng/dL Abnormal 0.10-0.85 [facility] Comment on above: Order Comment: Test( s) [id number]-Mmbpcntrymzepxt LCMS was developed and its performance characteristics determined by [facility]. It has not been cleared or approved by the Food and Drug Administration. N Performed By: #### L 3100.5310, L501.9985, L506.1001, L501.4100, L501.4405, L500.2500, L3300.1500, L3300.4450 #### [facility] [address] [place], [address] TESTOSTER,TOTAL 31 ng/dL Normal 4-50 [facility] Comment on above: Order Comment: Test( s) [id number]-Avxssuzzadvjybw LCMS was developed and its performance characteristics determined by [facility]. It has not been cleared or approved by the Food and Drug Administration. N Performed By: #### L 3100.5310, L501.9985, L506.1001, L501.4100, L501.4405, L500.2500, L3300.1500, L3300.4450 #### [facility] [address] [facility]. [place], [place], [phone] TESTOSTERONE,%F 2.92 High 0.50-2.80 [facility] Comment on above: Order Comment: Test( s) [id number]-Rnmqnqmjhztqipk LCMS was developed and its performance characteristics determined by [facility]. It has not been cleared or approved by the Food and Drug Administration. N Performed By: #### L 3100.5310, L501.9985, L506.1001, L501.4100, L501.4405, L500.2500, L3300.1500, L3300.4450 #### [facility] [address] [facility] [place], [address] AST(SGOT)on 01-18-2025 AST [Catalytic activity/Vol] 32 U/L Normal <=31 [facility] Comment on above: Performed By: #### L 3100.5310, L501.9985, L506.1001, L501.4100, L501.4405, L500.2500, L3300.1500, L3300.4450 #### [facility] [address] [facility]. [place], [place], [phone] Aminotransferas (SGP T)on 01-18-2025 ALT [Catalytic activity/Vol] 38 U/L High <=34 [facility] Comment on above: Performed By: #### L 3100.5310, L501.9985, L506.1001, L501.4100, L501.4405, L500.2500, L3300.1500, L3300.4450 #### [facility] [address] [facility] [place], [address] [phone] Basic Metabolic Profile (BMP )on 01-18-2025 BUN/CRE 16.6 RATIO Normal 10-20 [facility] Comment on above: Performed By: #### L 3100.5310, L501.9985, L506.1001, L501.4100, L501.4405, L500.2500, L3300.1500, L3300.4450 #### [facility] [address] [place], [address] Calcium [Mass/Vol] 8.9 mg/dL Normal 7.6-11.0 [facility] Comment on above: Performed By: #### L 3100.5310, L501.9985, L506.1001, L501.4100, L501.4405, L500.2500, L3300.1500, L3300.4450 #### [facility] [address] [place], [address] Chloride [Moles/Vol] 106 mmol/L Normal 98-108 [facility] Comment on above: Performed By: #### L 3100.5310, L501.9985, L506.1001, L501.4100, L501.4405, L500.2500, L3300.1500, L3300.4450 #### [facility] [address] [place], [address] CO2 [Moles/Vol] 24.9 mmol/L Normal 21.0-32.0 [facility] Comment on above: Performed By: #### L 3100.5310, L501.9985, L506.1001, L501.4100, L501.4405, L500.2500, L3300.1500, L3300.4450 #### [facility] [address] [place], [address] Creatinine [Mass/Vol] 0.73 mg/dL Normal 0.70-1.20 [facility] Comment on above: Performed By: #### L 3100.5310, L501.9985, L506.1001, L501.4100, L501.4405, L500.2500, L3300.1500, L3300.4450 #### [facility] [address] [place], [address] GAP 12 Normal 5-15 [facility] Comment on above: Performed By: #### L 3100.5310, L501.9985, L506.1001, L501.4100, L501.4405, L500.2500, L3300.1500, L3300.4450 #### [facility] [address] [place], [address] GFR/1.73 sq M.predicted among non-blacks MDRD (S/P/Bld) [Vol rate/Area] 101 mL/min/{1.73_m2} Normal >60 [facility] Comment on above: Result Comment: mL/m in/1.73m2 CKD-EPI Creatinine Equation (2020) Performed By: #### L 3100.5310, L501.9985, L506.1001, L501.4100, L501.4405, L500.2500, L3300.1500, L3300.4450 #### [facility] [address] [place], [address] Glucose [Mass/Vol] 102 mg/dL High 70-99 [facility] Comment on above: Performed By: #### L 3100.5310, L501.9985, L506.1001, L501.4100, L501.4405, L500.2500, L3300.1500, L3300.4450 #### [facility] [address] [place], [address] Potassium [Moles/Vol] 4.3 mmol/L Normal 3.3-5.1 [facility] Comment on above: Performed By: #### L 3100.5310, L501.9985, L506.1001, L501.4100, L501.4405, L500.2500, L3300.1500, L3300.4450 #### [facility] [address] [place], [address] Sodium [Moles/Vol] 142 mmol/L Normal 133-145 [facility] Comment on above: Performed By: #### L 3100.5310, L501.9985, L506.1001, L501.4100, L501.4405, L500.2500, L3300.1500, L3300.4450 #### [facility] [address] [place], [address] Urea nitrogen [Mass/Vol] 12 mg/dL Normal 4-19 [facility] Comment on above: Performed By: #### L 3100.5310, L501.9985, L506.1001, L501.4100, L501.4405, L500.2500, L3300.1500, L3300.4450 #### [facility] [address] [place], [address] Hemoglobin A1con 01-18-2025 HbA1c (Bld) [Mass fraction] 6.0 % High <=5.6 [facility] Comment on above: Result Comment: Norm al < 5.7 % Prediabetic 5.7 - 6.4 % Diabetic >or= 6.5 % Please note range changes. Performed By: #### L 3100.5310, L501.9985, L506.1001, L501.4100, L501.4405, L500.2500, L3300.1500, L3300.4450 #### [facility] [address] [place], [address] Vitamin D,25 Hydroxyon 01-18 Vitamin D 25-OH 50.8 ng/mL Normal 30-100 [facility] Comment on above: Result Comment: Brenda min D Status Deficiency: <20 ng/mL (50nmol/L) Insufficiency: 20-30 ng/mL (50-75 nmol/L) Sufficiency: 30-100 ng/mL (75-250 nmol/L) Toxicity: >100 ng/mL (>250 nmol/L) Performed By: #### L 3100.5310, L501.9985, L506.1001, L501.4100, L501.4405, L500.2500, L3300.1500, L3300.4450 #### [facility] [address] [place], [address] Anion gap in Serum or Plasma Ordered By: Francie Tyaskin on 10-14-2024 Anion gap [Moles/Vol] 11 mmol/L 5-15 [facility] BUN/creatinine ratioOrdered By: [facility]-2024 Urea nitrogen/Creatinine [Mass ratio] 18.0 mg/mg 10-20 [facility] Bilirubin, totalOrdered By: [facility] on 10-14-2024 Bilirubin [Mass/Vol] 0.31 mg/dL 0.00-1.30 [facility] Calculated very low density lipoprotein (VLDL) cholesterol measurementOrdered By: [facility]. [facility] on 10-14-2024 VLDL Cholesterol 27 mg/dL 5-40 [facility] Carbon dioxide, total [Moles /volume] in Central venous bloodOrdered By: [facility]St. [facility] on 10-14-2024 CO2 [Moles/Vol] 25.0 mmol/L 21.0-32.0 [facility] Chloride assayOrdered By: Aashish West on 10-14-2024 Chloride [Moles/Vol] 103 mmol/L 98-108 [facility] Comprehensive Metabolic Prof ilon 10-14-2024 Albumin [Mass/Vol] 4.1 g/dL Normal 3.5-5.0 [facility] Comment on above: Performed By: #### L 500.4100, L500.4050 #### [facility] [address] [place], [address] Albumin/Globulin [Mass ratio] 1.4 {ratio} Normal 0.9-2.4 [facility] Comment on above: Performed By: #### L 500.4100, L500.4050 #### [facility] [address] [place], [address] ALK PHOS 100 U/L Normal 35-104 [facility] Comment on above: Performed By: #### L 500.4100, L500.4050 #### [facility] [address] [place], [address] ALT [Catalytic activity/Vol] 43 U/L High <=34 [facility] Comment on above: Performed By: #### L 500.4100, L500.4050 #### [facility] [address] [place], [address] AST [Catalytic activity/Vol] 30 U/L Normal <=31 [facility] Comment on above: Performed By: #### L 500.4100, L500.4050 #### [facility] [address] [place], [address] Bilirubin [Mass/Vol] 0.31 mg/dL Normal 0.00-1.30 [facility] Comment on above: Performed By: #### L 500.4100, L500.4050 #### [facility] [address] [place], [address] BUN/CRE 18.0 RATIO Normal 10-20 [facility] Comment on above: Performed By: #### L 500.4100, L500.4050 #### [facility] [address] [place], [address] Calcium [Mass/Vol] 8.8 mg/dL Normal 7.6-11.0 [facility] Comment on above: Performed By: #### L 500.4100, L500.4050 #### [facility] [address] [place], [address] Chloride [Moles/Vol] 103 mmol/L Normal 98-108 [facility] Comment on above: Performed By: #### L 500.4100, L500.4050 #### [facility] [address] [place], [address] CO2 [Moles/Vol] 25.0 mmol/L Normal 21.0-32.0 [facility] Comment on above: Performed By: #### L 500.4100, L500.4050 #### [facility] [address] [place], [address] Creatinine [Mass/Vol] 0.73 mg/dL Normal 0.70-1.20 [facility] Comment on above: Performed By: #### L 500.4100, L500.4050 #### [facility] [address] [place], [address] GAP 11 Normal 5-15 [facility] Comment on above: Performed By: #### L 500.4100, L500.4050 #### [facility] [address] [place], [address] GFR/1.73 sq M.predicted among non-blacks MDRD (S/P/Bld) [Vol rate/Area] 100 mL/min/{1.73_m2} Normal >60 [facility] Comment on above: Result Comment: mL/m in/1.73m2 CKD-EPI Creatinine Equation (2020) Performed By: #### L 500.4100, L500.4050 #### [facility] [address] [place], [address] Globulin (S) [Mass/Vol] 2.9 g/dL Normal 2.2-4.2 [facility] Comment on above: Performed By: #### L 500.4100, L500.4050 #### [facility] [address] [place], [address] Glucose [Mass/Vol] 103 mg/dL High 70-99 [facility] Comment on above: Performed By: #### L 500.4100, L500.4050 #### [facility] [address] [place], [address] Potassium [Moles/Vol] 4.2 mmol/L Normal 3.3-5.1 [facility] Comment on above: Performed By: #### L 500.4100, L500.4050 #### [facility] [address] [place], [address] Sodium [Moles/Vol] 140 mmol/L Normal 133-145 [facility] Comment on above: Performed By: #### L 500.4100, L500.4050 #### [facility] [address] [place], [address] T PROT 7.0 g/dL Normal 5.9-8.4 [facility] Comment on above: Performed By: #### L 500.4100, L500.4050 #### [facility] [address] [place], [address] Urea nitrogen [Mass/Vol] 13 mg/dL Normal 4-19 [facility] Comment on above: Performed By: #### L 500.4100, L500.4050 #### [facility] [address] [place], [address] GFR/1.73 sq M.predicted alberto g non-blacks MDRD (S/P/Bld) [Vol rate/Area]Ordered By: Francie West on 10-14-2024 Estimated GFR (MDRD) Non-Af Amer 100 >60 [facility] Comment on above: mL/min/1.73m2 CKD-EP I Creatinine Equation (2020) LDL calc ser/plasOrdered By: Francie Hills on 10-14-2024 LDL Cholesterol, Calculated 101 mg/dL [facility] Comment on above: Tolvfjrjze=569-187 m g/dL & Higher Hegn=070 mg/dL or greater Laboratory - Chemistry and C hemistry - challengeOrdered By: Francie West on 10-14-2024 AST [Catalytic activity/Vol] 30 U/L <32 [facility] Lipid Profileon 10-14-2024 CHOL:HDL 3.85 Normal [facility] Comment on above: Performed By: #### L 3100.5310, L501.9985, L506.1001, L501.4100, L501.4405, L500.2500, L3300.1500, L3300.4450 #### [facility] [address] [place], [address] Cholesterol [Mass/Vol] 173 mg/dL Normal <=[address] [facility] Comment on above: Result Comment: Chol esterol level, Desirable <200 mg/dL Borderline high cholesterol 200-239 mg/dL High cholesterol >=240 mg/dL Recommendations of the NCEP Adult Treatment Panel for the following risk-cutoff thresholds for the [place] population. Performed By: #### L 3100.5310, L501.9985, L506.1001, L501.4100, L501.4405, L500.2500, L3300.1500, L3300.4450 #### [facility] [address] [place], [address] Cholesterol in HDL [Mass/Vol] 45 mg/dL Normal [facility] Comment on above: Result Comment: Caridad onal Cholesterol Education Program (NCEP) guidelines: <40 mg/dL: Low HDL-cholesterol (major risk factor for CHD) >= 60 mg/dL: High HDL-cholesterol (negative risk factor for CHD) HDL-cholesterol is affected by a number of factors, e.g. smoking, exercise, hormones, sex and age. Performed By: #### L 3100.5310, L501.9985, L506.1001, L501.4100, L501.4405, L500.2500, L3300.1500, L3300.4450 #### [facility] [address] [place], [address] Cholesterol in LDL [Mass/Vol] 101 mg/dL Normal [facility] Comment on above: Result Comment: Bord itojue=911-138 mg/dL Higher Esoa=094 mg/dL or greater Performed By: #### L 3100.5310, L501.9985, L506.1001, L501.4100, L501.4405, L500.2500, L3300.1500, L3300.4450 #### [facility] [address] [place], [address] Cholesterol in VLDL [Mass/Vol] 27 mg/dL Normal 5-40 [facility] Comment on above: Performed By: #### L 3100.5310, L501.9985, L506.1001, L501.4100, L501.4405, L500.2500, L3300.1500, L3300.4450 #### [facility] [address] [place], [address] Triglyceride [Mass/Vol] 135 mg/dL Normal [facility] Comment on above: Result Comment: The drugs N-Acetylcysteine and Metamizole may falsely depress this assay. Normal range: <150 mg/dL Borderline High: 150-199 mg/dL High: 200-499 mg/dL Very High: >500 mg/dL Performed By: #### L 3100.5310, L501.9985, L506.1001, L501.4100, L501.4405, L500.2500, L3300.1500, L3300.4450 #### [facility] [address] [place], [address] Potassium (Unsp spec) [Mass/ Vol]Ordered By: Francie West on 10-14-2024 Potassium [Moles/Vol] 4.2 mmol/L 3.3-5.1 [facility] Screening total cholesterol/ high density lipoprotein (HDL) cholesterol ratioOrdered By: Francie Tyaskin on 10-14-2024 Cholesterol.total/Chol esterol in HDL [Mass ratio] 3.85 {ratio} [facility] Serum creatinine measurement (mass/volume)Ordered By: Francie West on 10-14-2024 Creatinine [Mass/Vol] 0.73 mg/dL 0.70-1.20 [facility] Serum globulin measurementOr dered By: Francie West on 10-14-2024 Globulin (S) [Mass/Vol] 2.9 g/dL 2.2-4.2 [facility] Serum glucose measurement (m ass/volume)Ordered By: Francie West on 10-14-2024 Glucose [Mass/Vol] 103 mg/dL High 70-99 [facility] Serum or plasma alanine yanez otransferase (ALT) measurementOrdered By: Francie West on 10-14-2024 ALT [Catalytic activity/Vol] 43 U/L High <35 [facility] Serum or plasma albumin gabby urement (mass/volume)Ordered By: Francie West on 10-14-2024 Albumin [Mass/Vol] 4.1 g/dL 3.5-5.0 [facility] Serum or plasma albumin/glob ulin mass ratioOrdered By: Francie West on 10-14-2024 Albumin/Globulin [Mass ratio] 1.4 {ratio} 0.9-2.4 [facility] Serum or plasma alkaline neena sphatase measurementOrdered By: Francie West on 10-14-2024 ALP [Catalytic activity/Vol] 100 U/L 35-104 [facility] Serum or plasma calcium gabby urement (mass/volume)Ordered By: Francie West on 10-14-2024 Calcium [Mass/Vol] 8.8 mg/dL 7.6-11.0 [facility] Serum or plasma cholesterol in HDL measurement (mass/volume)Ordered By: Francie West on 10-14-2024 Cholesterol in HDL [Mass/Vol] 45 mg/dL >40 [facility] Comment on above: National Cholesterol Education Program (NCEP) guidelines:<40 mg/dL: Low HDL-cholesterol (major risk factor for CHD)>= 60 mg/dL: High HDL-cholesterol (negative risk factor for CHD)HDL-cholesterol is affected by a number of factors, e.g. smoking, exercise, hormones, sex and age. Serum or plasma cholesterol measurement (mass/volume)Ordered By: Francie West on 10-14-2024 Cholesterol [Mass/Vol] 173 mg/dL <[address] [facility] Comment on above: Cholesterol level, D esirable <200 mg/dLBorderline high cholesterol 200-239 mg/dLHigh cholesterol >=240 mg/dLRecommendations of the NCEP Adult Treatment Panel for the following risk-cutoff thresholds for the [place] population. Serum or plasma urea nitroge n measurement (mass/volume)Ordered By: Francie Brett on 10-14-2024 Urea nitrogen [Mass/Vol] 13 mg/dL 4-19 [facility] Sodium levelOrdered By: Thaisleroy kyle Brett on 10-14-2024 Sodium [Moles/Vol] 140 mmol/L 133-145 [facility] Total proteinOrdered By: Thais ivy Brett on 10-14-2024 Protein [Mass/Vol] 7.0 g/dL 5.9-8.4 [facility] Triglycerides measurementOrd ered By: Francie Tyaskin on 10-14-2024 Triglyceride [Mass/Vol] 135 mg/dL <199 [facility] Comment on above: The drugs N-Acetylcy steine and Metamizole may falsely depress this assay. Normal range: <150 mg/dLBorderline High: 150-199 mg/dLHigh: 200-499 mg/dLVery High: >500 mg/dL URINE CULTURE [CCL]on 2024 Bacteria identified Cx Nom (U) URCUL See Results Below See Below CULTURE, URINE MIXED MICROBIOTA 10,000 -<50,000 CFU/ml Mixed microbiota No further workup. Mixed microbiota can be due to???urine???contaminat ion with s SOURCE: Urine (Nonspecific) [place] [address] German Welch III, M.D. [id number] SEND TO IC NO Normal [facility] Comment on above: Performed By: #### 2 [address] #### [facility],[address] [place] [address] Bacteria Ur Culton Bacteria identified Cx Nom (U) ORGANISM ID: 1 10,000 -<50,000 CFU/ml Mixed microbiota No further workup. Mixed microbiota can be due to???urine???contaminat ion with skin bacteria at time of collection or presence of a long-term urinary catheter. If a new culture is needed, please consider re-education of the patient on proper midstream collection technique or straight catheterization for???urine???collectio n. Normal [facility] Comment on above: Performed By: #### 6 30-4 #### [facility] CLIA [id number] [address] [place] [address] [place] AND[place] 09-11-2024 Androstenedione LCMS 70 ng/dL Normal 41-262 [facility] Comment on above: Result Comment: This test was developed and its performance characteristics determined by [facility]. It has not been cleared or approved by the Food and Drug Administration. Performed At: [facility] [id number] Harpreet Morgan MD Ph:[phone] Performed By: #### G FR, 081911, BMP, DHEAS, ALT, 960607, VIDH, A1C, AST #### [place] [address] TFTESTon 09-10-2024 Free Testost Direct 3.4 pg/mL Normal 0.0-4.2 [facility] Comment on above: Result Comment: Perf ormed At: [address] [id number] Harpreet Morgan MD Ph:[phone] Performed At: [address] [id number] Dontae Wright PhD Ph:[phone] Performed By: #### G FR, 641285, BMP, DHEAS, ALT, 867670, VIDH, A1C, AST #### [place] [address] Testosterone Lvl 34 ng/dL Normal 4-50 [facility] Comment on above: Performed By: #### G FR, 389011, BMP, DHEAS, ALT, 415713, VIDH, A1C, AST #### [place] [id number] .GFRon 09-08-2024 GFR >60 Normal [facility] Comment on above: Result Comment: GFR Population mean for , Non- Americans Ages 20-29 = 116 mL/min/1.73 sq.m. Ages 30-39 = 107 mL/min/1.73 sq.m. Ages 40-49 = 99 mL/min/1.73 sq.m. Ages 50-59 = 93 mL/min/1.73 sq.m. Ages 60-69 = 85 mL/min/1.73 sq.m. Ages 70+ = 75 mL/min/1.73 sq.m. Chronic Kidney Disease: Less than 60 mL/min/1.73 square meters End Stage Renal Disease: Less than 15 mL/min/1.73 square meters Performed By: #### G FR, 276212, BMP, DHEAS, ALT, 037104, VIDH, A1C, AST #### [address] [address] GFR Non- >60 [facility] Comment on above: Result Comment: GFR Population mean for , Non- Americans Ages 20-29 = 116 mL/min/1.73 sq.m. Ages 30-39 = 107 mL/min/1.73 sq.m. Ages 40-49 = 99 mL/min/1.73 sq.m. Ages 50-59 = 93 mL/min/1.73 sq.m. Ages 60-69 = 85 mL/min/1.73 sq.m. Ages 70+ = 75 mL/min/1.73 sq.m. Chronic Kidney Disease: Less than 60 mL/min/1.73 square meters End Stage Renal Disease: Less than 15 mL/min/1.73 square meters Performed By: #### G FR, 310826, BMP, DHEAS, ALT, 243730, VIDH, A1C, AST #### [address] [address] A1Con 09-08-2024 Glucose [Mass/Vol] 131 mg/dL [facility] Comment on above: Result Comment: Marisol mated Average Glucose calculated by equation ((28.7xA1C)-46.7) Estimated average glucose (eAG) is a calculated value from Hemoglobin A1C and is public health representative of the average blood glucose level in the last 2-3 month period. Normal range: less than 114 mg/dL Performed By: #### G FR, 135263, BMP, DHEAS, ALT, 395940, VIDH, A1C, AST #### [address] [address] HbA1c (Bld) [Mass fraction] 6.2 % High 4.0-6.0 [facility] Comment on above: Performed By: #### G FR, 499952, BMP, DHEAS, ALT, 533423, VIDH, A1C, AST #### [address] [address] ALT/SGPTon 09-08-2024 ALT [Catalytic activity/Vol] 56 U/L High 10-49 [facility] Comment on above: Performed By: #### G FR, 244668, BMP, DHEAS, ALT, 458653, VIDH, A1C, AST #### [place] [id number] [place] 09-08-2024 AST [Catalytic activity/Vol] 40 U/L High 8-34 [facility] Comment on above: Performed By: #### G FR, 521028, BMP, DHEAS, ALT, 872879, VIDH, A1C, AST #### [place] [id number] BMPon 09-08-2024 BUN/Creatinine Ratio 16.7 ratio Normal 10.0-22.0 [facility] Comment on above: Performed By: #### G FR, 042269, BMP, DHEAS, ALT, 527760, VIDH, A1C, AST #### [address] [address] Calcium [Mass/Vol] 9.4 mg/dL Normal 8.7-10.4 [facility] Comment on above: Performed By: #### G FR, 910585, BMP, DHEAS, ALT, 680424, VIDH, A1C, AST #### [address] [address] Chloride [Moles/Vol] 106 mmol/L Normal 98-110 [facility] Comment on above: Performed By: #### G FR, 410128, BMP, DHEAS, ALT, 456314, VIDH, A1C, AST #### [place] [id number] CO2 [Moles/Vol] 28 mmol/L Normal 22-32 [facility] Comment on above: Performed By: #### G FR, 284282, BMP, DHEAS, ALT, 069209, VIDH, A1C, AST #### [address] [address] Creatinine [Mass/Vol] 0.66 mg/dL Normal 0.50-1.20 [facility] Comment on above: Result Comment: Test ing performed on Macromill analyzer using enzymatic creatinine methodology. Performed By: #### G FR, 312339, BMP, DHEAS, ALT, 875345, VIDH, A1C, AST #### [address] [address] Electrolyte Balance 9.0 mEq/L Normal 4.0-15.0 [facility] Comment on above: Performed By: #### G FR, 333918, BMP, DHEAS, ALT, 008403, VIDH, A1C, AST #### [place] [id number] Glucose [Mass/Vol] 135 mg/dL High 70-110 [facility] Comment on above: Performed By: #### G FR, 251895, BMP, DHEAS, ALT, 419823, VIDH, A1C, AST #### [address] [address] Potassium [Moles/Vol] 4.1 mmol/L Normal 3.5-5.0 [facility] Comment on above: Performed By: #### G FR, 051677, BMP, DHEAS, ALT, 302386, VIDH, A1C, AST #### [address] [address] Sodium [Moles/Vol] 143 mmol/L Normal 136-145 [facility] Comment on above: Performed By: #### G FR, 482531, BMP, DHEAS, ALT, 392418, VIDH, A1C, AST #### [address] [address] Urea nitrogen [Mass/Vol] 11.0 mg/dL Normal 8.0-22.0 [facility] Comment on above: Performed By: #### G FR, 792752, BMP, DHEAS, ALT, 004022, VIDH, A1C, AST #### [facility] [address] [place] [address] DHEASon 09-08-2024 DHEA-SO4 174.26 mcg/dL Normal 25.90-460.20 [facility] Comment on above: Result Comment: No te - New Reference Range in effect 20 Performed By: #### G FR, 570899, BMP, DHEAS, ALT, 855480, VIDH, A1C, AST #### [facility] [address] [place] [address] VIDHon 09-08-2024 Vit. D 25-Hydroxy 45.3 ng/mL Normal [facility] Comment on above: Result Comment: Inte rpretive Values Based on Total 25(OH)D: Severe Deficiency <20 ng/mL Mild to Moderate Deficiency 20-30 ng/mL Optimum Levels 30-100 ng/mL Toxicity Possible >100 ng/mL Performed By: #### G FR, 889450, BMP, DHEAS, ALT, 021055, VIDH, A1C, AST #### [facility] [address] [place] [address] Urgent Care Visit Reporton 1 10-04-2023 Urgent Care Visit Report [facility] [address], [address] [place] [address] OFFICE VISIT Date of Service: 08/03/24 MR#: [id number] Acct: [id number] Name: OTMA ADAMS Rep #: [id number] : 1975 Provider: DIANA Rivera Age/Sex: 49/F Location: [facility] Status: Signed Intake Vital Signs 08/03/24 12:28 Height 5 ft 3 in Weight: 236 lb BMI 41.8 BP 122/72 H Blood Pressure Location Lt brachial Position Sitting Respiration 12 Pulse 83 Pulse Source NIBP Temp 97.8 F Temp Source Oral Pulse Oximetry (%) 94 Oxygen Delivery Method room air Intake Visit Reasons: SINUS COMP/ST/COUGH Chief Complaint: sinus congestion and pressure, st, cough, egan [employer] 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 Is patient in pain?: No Allergies No Known Allergies Allergy (Verified 08/03/24 12:29) Medications ???Medication ???Instructions ???Recorded ???Confirmed ???Type amoxicillin 500 mg tablet 500 mg PO TID #30 tabs 08/03/24 08/03/24 Rx aripiprazole 5 mg tablet 5 mg PO QDAY 08/03/24 08/03/24 History fluoxetine 40 mg capsule 40 mg PO QDAY 08/03/24 08/03/24 History metformin 500 mg tablet,extended 1,000 mg PO BID 08/03/24 08/03/24 History release 24 hr metoprolol succinate 50 mg 50 mg PO QDAY 08/03/24 08/03/24 History tablet,extended release 24 hr spironolactone 50 mg tablet 50 mg PO BID 08/03/24 08/03/24 History Is last menstrual period known: No Post menopausal: No Patient : No Have you fallen in the past year?: No Nurse's Note: patient here for sinus pressure, st, cough, egan x1 week HPI HPI Chief Complaint: sinus congestion and pressure, st, cough, egan Details: TOMA ADAMS, is a 49 F who presents to the office today for initial evaluation at the [facility] for approximately 1-week history of progressively worsening facial pressure/congestion with purulent postnasal drip with headache/cough and sore throat. No complaints of fever, chills, myalgias, fatigue, runny nose, or nausea/vomiting/diarrhe a. No complaints of chest pain/shortness of breath/dyspnea on exertion. No close contacts with similar complaints. No other associated symptoms and no other alleviating/aggravating factors. ROS Const Constitutional: No other (as above) Exam Const General: cooperative, healthy appearing and no acute distress Nutritional Appearance: average body habitus Orientation: alert, awake and oriented x3 [facility] Head: normal to inspection Ears: hearing grossly normal bilaterally, external ears normal, TM's normal bilaterally and EAC's normal Nose: external nose normal, nares normal, septum normal and no nasal discharge Face and sinus: normal facial exam, sinuses nontender (Though bilateral maxillary fullness to palpation) and face symmetric Mouth: oral mucosae normal, lip normal, tongue normal and oropharynx normal Throat: posterior oropharynx normal, tonsils normal, uvula midline and postnasal drainage (Purulent) Eyes General: appearance normal, both eyes and all related structures Neck Neck: normal visual inspection, full ROM, no meningeal signs, supple and lymphadenopathy (Bilateral anterior cervical lymph node swelling/tender to palpation) Neck mass: No Thyroid: thyroid normal Chest Chest palpation inspection: normal inspection of the chest Resp Effort Inspection: normal respiratory effort and able to speak in complete sentences Auscultation: Bilateral: Clear to Auscultation Cardio Palpation: normal PMI Rate: regular rate Rhythm: regular rhythm Heart Sounds: S1 normal, S2 normal, no gallops, no murmurs and no rubs Pulses: radial pulses present GI Inspection: normal to inspection Skin General: no rashes or lesions noted Neuro General: patient alert, patient awake and patient oriented x3 Cognition: normal cognition Speech: speech normal Psych Appearance: grossly normal Mental Status: mental status grossly normal Mood: congruent mood Affect: normal affect Speech and Movement: speech and movement normal Attitude: cooperative Diagnoses Acute maxillary sinusitis, unspecified J01.00 Assessment and Plan Assessment and Plan (1) Acute maxillary sinusitis, unspecified: Status: Acute Plan: Amoxicillin as prescribed today. Supportive measures as instructed today. Follow-up with PCP in 3 to 5 days should symptoms not improve, sooner should symptoms worsen or any other concerns develop. Patient states acknowledging understanding all the above Coding Level of Care Code Off vis,new,level 3 Assessment and Plan Assessment and Plan Medications: New amoxicillin 500 mg PO TID 30 tabs 0RF Clinical Quality Measures Falls Risk Screening/Assistive Devices Have you fallen in the past year?: No 08/03/24 1242 Date Joon Holm (more content not included)... Normal [facility] CNOVon 05-27-2024 CNOV Office Visit (OBGYWM ) TOMA ADAMS ([id number]) 1975 F Date Time Provider Department 05/27/24 2:00 PM SONJA MATAMOROS OBGYWM During your visit today, we recorded the following information about you: Weight 111.1 kg Sonja Matamoros MD 05/27/2024 2:44 PM Signed Toma is a 48 year old who presents today for a colposcopy. The patient's last pap smear was LGSIL from March 2023. Patient has a history of abnormal pap: Yes. The patient has had prior treatment: none. test: negative UNIVERSAL PROTOCOL / SAFETY CHECKLIST Procedure to be Performed: colposcopy with possible biopsies Sign In: A Moment of CARE was completed. Personnel directly involved with the procedure wore the appropriate PPE (Personal Protective Equipment). Patient/Surrogate Stated/Verified: PATIENT VERIFIED(optional for EMERGENT procedures): Patient name, Date of , Relevant allergies, and The intended procedure Time Out Communication: Intended patient and procedure match the source documents. Consent documented and matches the intended procedure. Relevant labs, photos, and/or imaging studies have been reviewed. No implant(s) inserted. Sign Out: SIGN OUT (optional for EMERGENT procedures): All specimen containers correctly labeled. All instruments, equipment, possible retained foreign bodies accounted for. Post-procedure follow-up management communicated and Plan of Care Visit completed when applicable. PROCEDURE: EXTERNAL GENITALIA: Normal in appearance without lesions VAGINA: Normal in appearance without lesions CERVIX: Speculum placed in vagina and excellent visualization of cervix achieved. Cervix swabbed x 3 with 3% acetic acid solution. Cervix grossly normal. Squamocolumnar junction visualized. acetowhite changes noted posterior lip of cervix, punctations noted -none, mosaicism noted 4-7 oclock, and atypical vasculature noted -none. BIOPSY: Done at 3:00, 6:00, 9:00, and 12:00 ECC: done HEMOSTASIS: Obtained with silver nitrate Procedure Summary: Patient tolerated procedure well and colposcopy was adequate. ASSESSMENT: HPV effect PLAN: Specimens labeled and sent to Pathology. Will notify patient of results in 1-2 weeks. Post-procedure instructions reviewed and written material given to the patient. If indicated, lesion by colpo is amenable to office LEEP as lesion is small. MD Tika Mayen Annalee, LPN 05/27/2024 2:23 PM Signed YOUR RECOVERY It may take a few weeks for your cervix to heal. While your cervix heals, you may have: - Vaginal bleeding (less than a normal menstrual period) - Mild cramping - A brown-black vaginal discharge (similar to coffee grounds) which is a result of the paste used to help stop bleeding from the procedure Do NOT put anything in the vagina for 1 week after your colposcopy if your doctor does a biopsy of your cervix. This includes sex, tampons, and douches. If you have any discomfort, you may take an over the counter pain medication (motrin, advil, ibuprofen, tylenol, etc). If this does not relieve your discomfort, contact your doctor's office for a prescription strength pain medication. It is okay to wear a sanitary pad until the discharge and spotting stops. RISKS Although problems seldom occur with colposcopy, there can be some complications. You may feel faint during and shortly after the procedure as well as have some bleeding and vaginal discharge after the procedure. There is also a risk of infection after the procedure. These complications are rare and can be easily treated. You should contact you doctor is you have any of the following: - Heavy bleeding (more than your normal period) - Bleeding with clots - Severe abdominal pain - Fever (more than 100.4F) - Foul smelling vaginal discharge RESULTS If a biopsy was taken, we will have the results of your biopsy in 1-2 weeks. If you do not hear the results of your biopsy after 2 weeks, please contact your physicians office for the results. Depending on the biopsy results, your doctor will determine your follow up plan which may include further testing or treatments. STAYING HEALTHY After the procedure, you will need to see your doctor for follow up visits during the year. At these visits your doctor will check the health of your cervix with a pap smear. After three normal pap smears, your doctor will allow you to return to having exams once a year. If you have another abnormal pap smear, you may need closer follow up for longer or you may need additional treatment. By making a few lifestyle changes after the procedure, you can help protect the health of your cervix: - Have regular pelvic exams and pap smears as ordered by your doctor. - Stop smoking as smoking increases your risk of developing a cancer of the cervix - If you have more than one sexual par (more content not included)... Normal [facility] SURGICAL PATHOLOGYon 024 CASE REPORT Normal [facility] Comment on above: Order Comment: Speci men Type: TISSUE SPECIMEN Ordering Facility: [facility] Address: [address] [place] [address] Result Comment: Surg ical Pathology Report Case: [id number] Authorizing Provider: Sonja Matamoros MD Collected: 05/27/2024 02:48 PM Ordering Location: OB/Gynecology Received: 05/28/2024 08:47 AM Pathologist: Dimitry Sandoval MD Specimens: A) - Endocervix, Curettings B) - Cervix, Biopsy, 3, 6, 9, 12 oclock Performed By: #### S #### [facility] CLIA [id number] [address] [place] [address] OF [facility]ICAL HISTORY Positive Normal [facility] Comment on above: Order Comment: Speci men Type: TISSUE SPECIMEN Ordering Facility: [facility] Address: [address] [place] [address] Performed By: #### S #### [facility] CLIA [id number] [address] [place] [address] FINAL DIAGNOSIS Normal [facility] Comment on above: Order Comment: Speci men Type: TISSUE SPECIMEN Ordering Facility: [facility] Address: [address] [place] [address] Result Comment: A. E ndocervix, curettage: - Benign endocervical and transformation zone tissue. B. Cervix, 3:00, 6:00, 9:00 and 12:00, biopsies: - Low-grade squamous intraepithelial lesion (YUMIKO 1); see comment. MJM 05/29/2024 Performed By: #### S #### [facility] CLIA [id number] [address] [place] [address] FINAL PERFORMING LAB Normal [facility] Comment on above: Order Comment: Speci men Type: TISSUE SPECIMEN Ordering Facility: [facility] Address: [address] [place] [address] Result Comment: Diag nostic interpretation performed at [facility], [id number] [place] [address] CLIA# [id number] Singe Machine Operator: Dimitry Sandoval M.D. Performed By: #### S #### [facility] CLIA [id number] [address] [place] [address] [place] GROSS DESCRIPTION Normal [facility] Comment on above: Order Comment: Speci men Type: TISSUE SPECIMEN Ordering Facility: [facility] Address: [address] [place] [address] Result Comment: A. E ndocervix, Curettings Received in formalin are multiple red-brown, soft feathery segments of tissue aggregating to 0.5 x 0.2 x 0.2 cm. Totally submitted in one cassette. B. Cervix, Biopsy Received in formalin are multiple pieces of abdi, soft tissue aggregating to 1.2 x 0.4 x 0.2 cm. Totally submitted in one cassette. 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 Follow-up in 6 months is recommended. Finding 2: Asymmetry in the superior right breast requires additional evaluation. A breast ultrasound exam is recommended. Finding 3: Asymmetry in the inferior right breast requires additional evaluation. A breast ultrasound exam is recommended. Finding 4: Asymmetry in the left breast requires additional evaluation. A breast ultrasound exam is recommended. BI-RADS Category 0: Incomplete: Needs Additional Imaging Evaluation RISK: Based on the Tyrer-Cuzick (TC) risk assessment model, this patient has a 11.4% lifetime risk of developing breast cancer, meaning they are at average risk for developing breast cancer. However, this is only an estimate based on available history provided on the patient's questionnaire. We encourage all patients talk with their providers about these results, further recommendations for managing breast health, and appropriate supplemental screening options if the patient has dense breast tissue. Interpreting Radiologist: Carlota Nj M.D. Automobile Damage Appraiser: MELLISA Transcribe Date/Time: May 13 2024 1:51P Dictated by: CARLOTA NJ MD This examination was interpreted and the report reviewed and electronically signed by: CARLOTA NJ MD on May 13 2024 2:54PM [facility] DIVISION OF RADIOLOGY * * *Final Report* * * DATE OF EXAM: May 13 2024 2:29PM [facility] 0627 - CEM ALVAREZG Marcello VENTURA WILFRED / PROCEDURE REASON: Abnormal mammogram * * * * Physician Interpretation * * * * RESULT: [place] [address] HISTORY: Patient is 48 years old and is seen for diagnostic evaluation of abnormal mammogram in both breasts and diffuse pain in the right breast. The patient has no personal history of cancer. COMPARISON STUDIES: The present examination has been compared to a prior imaging study dated 04/17/2024 (mammogram). MAMMOGRAM TECHNIQUE: The study was acquired using full field digital technology and interpreted from soft copy. Digital Breast Tomosynthesis (DBT) images were obtained and used to assist in the interpretation of this examination. Computer-aided detection was utilized by the radiologist in the interpretation of this examination. MAMMOGRAM FINDINGS: The breasts are heterogeneously dense, which may obscure small masses. Finding 1: There are punctate calcifications with scattered distribution in the upper outer quadrant of the right breast. Finding 2: There is an asymmetry measuring 1.5 cm with circumscribed margins in the superior right breast. Finding 3: There is an asymmetry measuring 1.3 cm with indistinct margins in the inferior right breast. This finding resembles fibroglandular tissue. Finding 4: There is an asymmetry measuring 1.3 cm with indistinct margins in the inferior left breast. This finding resembles fibroglandular tissue. DIVISION OF RADIOLOGY Provider, Niki Liliya [facility] - 05/13/2024 * * *Final Report* * * DATE OF EXAM: May 13 2024 2:29PM [facility] 0627 - CEM JC VENTURA WILFRED / PROCEDURE REASON: Abnormal mammogram * * * * Physician Interpretation * * * * RESULT: [place] [address] HISTORY: Patient is 48 years old and is seen for diagnostic evaluation of abnormal mammogram in both breasts and diffuse pain in the right breast. The patient has no personal history of cancer. COMPARISON STUDIES: The present examination has been compared to a prior imaging study dated 04/17/2024 (mammogram). MAMMOGRAM TECHNIQUE: The study was acquired using full field digital technology and interpreted from soft copy. Digital Breast Tomosynthesis (DBT) images were obtained and used to assist in the interpretation of this examination. Computer-aided detection was utilized by the radiologist in the interpretation of this examination. MAMMOGRAM FINDINGS: The breasts are heterogeneously dense, which may obscure small masses. Finding 1: There are punctate calcifications with scattered distribution in the upper outer quadrant of the right breast. Finding 2: There is an asymmetry measuring 1.5 cm with circumscribed margins in the superior right breast. Finding 3: There is an asymmetry measuring 1.3 cm with indistinct margins in the inferior right breast. This finding resembles fibroglandular tissue. Finding 4: There is an asymmetry measuring 1.3 cm with indistinct margins in the inferior left breast. This finding resembles fibroglandular tissue. IMPRESSION IMPRESSION: Finding 1: Calcifications in the right breast are probably benign. Follow-up in 6 months is recommended. Finding 2: Asymmetry in the superior right breast requires additional evaluation. A breast ultrasound exam is recommended. Finding 3: Asymmetry in the inferior right breast requires additional evaluation. A breast ultrasound exam is recommended. Finding 4: Asymmetry in the left breast requires additional evaluation. A breast ultrasound exam is recommended. BI-RADS Category 0: Incomplete: Needs Additional Imaging Evaluation RISK: Based on the Tyrer-Cuzick (TC) risk assessment model, this patient has a 11.4% lifetime risk of developing breast cancer, meaning they are at average risk for developing breast cancer. However, this is only an estimate based on available history provided on the patient's questionnaire. We encourage all patients talk with their providers about these results, further recommendations for managing breast health, and appropriate supplemental screening options if the patient has dense breast tissue. Interpreting Radiologist: Carlota Nj M.D. Automobile Damage Appraiser: MELLISA Transcribe Date/Time: May 13 2024 1:51P Dictated by: CARLOTA NJ MD This examination was interpreted and the report reviewed and electronically signed by: CARLOTA NJ MD on May 13 2024 2:54PM EST [facility] DBT Breast - bilateral diagn ostic for implantOrdered By: [facility] Provider on 05-13-2024 [facility] No Panel InformationOrdered By: [facility] Provider on 05-13-2024 [facility] No Panel Informationon 05-13 Radiology Study observation (narrative) [facility] US Breast - left limitedon 1 IMPRESSION: Finding 1: Area in the left breast is not seen. Finding 2: Simple cyst in the right breast at 12 o'clock is benign. Finding 3: Mass in the right breast at 5 o'clock is probably benign. Mammographic and sonographic follow-up in 6 months is recommended. BI-RADS Category 3: Probably Benign RISK: Based on the Tyrer-Cuzick (TC) risk assessment model, this patient has a 11.4% lifetime risk of developing breast cancer, meaning they are at average risk for developing breast cancer. However, this is only an estimate based on available history provided on the patient's questionnaire. We encourage all patients talk with their providers about these results, further recommendations for managing breast health, and appropriate supplemental screening options if the patient has dense breast tissue. Automobile Damage Appraiser: MELLISA Transcribe Date/Time: May 13 2024 2:48P Dictated by : CARLOTA NJ MD This examination was interpreted and the report reviewed and electronically signed by: CARLOTA NJ MD on May 13 2024 3:17PM EST DIVISION OF RADIOLOGY * * *Final Report* * * DATE OF EXAM: May 13 2024 3:07PM [facility] 0593 - CEM BREAST LTD LT / PROCEDURE REASON: Abnormal mammogram * * * * Physician Interpretation * * * * [facility] [address] [place] [address] HISTORY: Patient is 48 years old and is seen for diagnostic exam and abnormal mammogram in both breasts. The patient has no personal history of cancer. COMPARISON STUDIES: The present examination has been compared to prior imaging studies dated 04/17/2024 (mammogram) and 05/13/2024 (mammogram). ULTRASOUND TECHNIQUE: Targeted ultrasound of the indicated area was performed. Ibarra scale images were saved. ULTRASOUND FINDINGS: Finding 1: No abnormality is seen at the site of clinical concern. Finding 2: There is an oval simple cyst measuring 1.5 cm in the right breast at 12 o'clock. Internal echotexture is anechoic. Finding 3: There is an oval parallel mass with circumscribed margins measuring 0.8 cm in the right breast at 5 o'clock. 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 No abnormality is noted in the right axilla. DIVISION OF RADIOLOGY Provider, [facility] - 05/13/2024 * * *Final Report* * * DATE OF EXAM: May 13 2024 3:07PM [facility] 0[address] - [facility] BREAST LTD LT / PROCEDURE REASON: Abnormal mammogram * * * * Physician Interpretation * * * * [place] [address] [place] [address] HISTORY: Patient is 48 years old and is seen for diagnostic exam and abnormal mammogram in both breasts. The patient has no personal history of cancer. COMPARISON STUDIES: The present examination has been compared to prior imaging studies dated 04/17/2024 (mammogram) and 05/13/2024 (mammogram). ULTRASOUND TECHNIQUE: Targeted ultrasound of the indicated area was performed. Ibarra scale images were saved. ULTRASOUND FINDINGS: Finding 1: No abnormality is seen at the site of clinical concern. Finding 2: There is an oval simple cyst measuring 1.5 cm in the right breast at 12 o'clock. Internal echotexture is anechoic. Finding 3: There is an oval parallel mass with circumscribed margins measuring 0.8 cm in the right breast at 5 o'clock. 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 No abnormality is noted in the right axilla. IMPRESSION IMPRESSION: Finding 1: Area in the left breast is not seen. Finding 2: Simple cyst in the right breast at 12 o'clock is benign. Finding 3: Mass in the right breast at 5 o'clock is probably benign. Mammographic and sonographic follow-up in 6 months is recommended. BI-RADS Category 3: Probably Benign RISK: Based on the Tyrer-Cuzick (TC) risk assessment model, this patient has a 11.4% lifetime risk of developing breast cancer, meaning they are at average risk for developing breast cancer. However, this is only an estimate based on available history provided on the patient's questionnaire. We encourage all patients talk with their providers about these results, further recommendations for managing breast health, and appropriate supplemental screening options if the patient has dense breast tissue. Automobile Damage Appraiser: MELLISA Transcribe Date/Time: May 13 2024 2:48P Dictated by : CARLOTA NJ MD This examination was interpreted and the report reviewed and electronically signed by: CARLOTA NJ MD on May 13 2024 3:17PM EST [facility] Breast - right limitedon 05-13-2024 IMPRESSION: Finding 1: Area in the left breast is not seen. Finding 2: Simple cyst in the right breast at 12 o'clock is benign. Finding 3: Mass in the right breast at 5 o'clock is probably benign. Mammographic and sonographic follow-up in 6 months is recommended. BI-RADS Category 3: Probably Benign RISK: Based on the Tyrer-Cuzick (TC) risk assessment model, this patient has a 11.4% lifetime risk of developing breast cancer, meaning they are at average risk for developing breast cancer. However, this is only an estimate based on available history provided on the patient's questionnaire. We encourage all patients talk with their providers about these results, further recommendations for managing breast health, and appropriate supplemental screening options if the patient has dense breast tissue. Automobile Damage Appraiser: MELLISA Transcribe Date/Time: May 13 2024 2:47P Dictated by : CARLOTA NJ MD This examination was interpreted and the report reviewed and electronically signed by: CARLOTA NJ MD on May 13 2024 3:17PM EST DIVISION OF RADIOLOGY * * *Final Report* * * DATE OF EXAM: May 13 2024 3:07PM [facility] 0594 - [facility] [employer] [facility] RT / PROCEDURE REASON: Abnormal mammogram * * * * Physician Interpretation * * * * [place] [id number] HISTORY: Patient is 48 years old and is seen for diagnostic exam and abnormal mammogram in both breasts. The patient has no personal history of cancer. COMPARISON STUDIES: The present examination has been compared to prior imaging studies dated 04/17/2024 (mammogram) and 05/13/2024 (mammogram). ULTRASOUND TECHNIQUE: Targeted ultrasound of the indicated area was performed. Ibarra scale images were saved. ULTRASOUND FINDINGS: Finding 1: No abnormality is seen at the site of clinical concern. Finding 2: There is an oval simple cyst measuring 1.5 cm in the right breast at 12 o'clock. Internal echotexture is anechoic. Finding 3: There is an oval parallel mass with circumscribed margins measuring 0.8 cm in the right breast at 5 o'clock. 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 No abnormality is noted in the right axilla. DIVISION OF RADIOLOGY Provider, [facility] * * *Final Report* * * DATE OF EXAM: May 13 2024 3:07PM [facility] 0594 - [facility] [employer] [facility] RT / PROCEDURE REASON: Abnormal mammogram * * * * Physician Interpretation * * * * [place] [id number] HISTORY: Patient is 48 years old and is seen for diagnostic exam and abnormal mammogram in both breasts. The patient has no personal history of cancer. COMPARISON STUDIES: The present examination has been compared to prior imaging studies dated 04/17/2024 (mammogram) and 05/13/2024 (mammogram). ULTRASOUND TECHNIQUE: Targeted ultrasound of the indicated area was performed. Ibarra scale images were saved. ULTRASOUND FINDINGS: Finding 1: No abnormality is seen at the site of clinical concern. Finding 2: There is an oval simple cyst measuring 1.5 cm in the right breast at 12 o'clock. Internal echotexture is anechoic. Finding 3: There is an oval parallel mass with circumscribed margins measuring 0.8 cm in the right breast at 5 o'clock. 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 No abnormality is noted in the right axilla. IMPRESSION IMPRESSION: Finding 1: Area in the left breast is not seen. Finding 2: Simple cyst in the right breast at 12 o'clock is benign. Finding 3: Mass in the right breast at 5 o'clock is probably benign. Mammographic and sonographic follow-up in 6 months is recommended. BI-RADS Category 3: Probably Benign RISK: Based on the Tyrer-Cuzick (TC) risk assessment model, this patient has a 11.4% lifetime risk of developing breast cancer, meaning they are at average risk for developing breast cancer. However, this is only an estimate based on available history provided on the patient's questionnaire. We encourage all patients talk with their providers about these results, further recommendations for managing breast health, and appropriate supplemental screening options if the patient has dense breast tissue. Automobile Damage Appraiser: MELLISA Transcribe Date/Time: May 13 2024 2:47P Dictated by : CARLOTA NJ MD This examination was interpreted and the report reviewed and electronically signed by: CARLOTA NJ MD on May 13 2024 3:17PM [facility] Surgery Specimen Level Erasto 04-22-2023 Surgery Specimen Level IV Patient Age/Sex Location Account Attending Physician TOMA ADAMS 47/F WO[place] [id number] Dr. Anabell Keita DO Specimen: [id number] Received: 04/22/23 Status: DENISE Russ Num: [id number] Spec Type: CERV Subm Dr: Dr. Anabell Keita DO HEADER OPERATION: Colposcopy, endocervical curettage PRE-OP DIAGNOSIS: N87.0, R87.810 TISSUE SUBMITTED: A - #1, B - #2 MICROSCOPIC DIAGNOSIS A. Cervix/endocervix, biopsy: Focal HPV change noted. See comment. B. Endocervix, curettings: Strips of benign superficial endocervix. AM:skip 04/24/2023 COMMENT A. Results from immunohistochemistry ([id number]) for surrogate HPV marker (p16) will be reported separately. MICROSCOPIC DESCRIPTION Slides are reviewed. GROSS DESCRIPTION A - Received in fixative is one container labeled with the patient's name and designated #1. The specimen consists of multiple irregular fragments of light abdi soft tissue that in aggregate measure 1.5 x 0.5 x 0.1 cm. The specimen is totally submitted in one cassette. B - Received in fixative is one container labeled with the patient's name and designated #2. The specimen consists of multiple irregular fragments of abdi-pink soft tissue mixed with mucoid tissue that in aggregate measure 2.5 x 1.0 x 0.1 cm. The specimen is totally submitted in one cassette. / SJ:skip 04/23/2023 TC:3 CPT: 17739 x2 Patient Age/Sex Location Account Attending Physician TOMA ADAMS 47/F WOAB [id number] Dr. Anabell Keita DO Signed (signature on file) Dr. Bolivar Aguillon DO 04/25/23 1400 Normal [facility] Comment on above: Performed By: #### P SUIV #### [facility] [address] [place] [address], [address] p16 (initial)on 04-22-2023 p16 (initial) Patient Age/Sex Location Account Attending Physician TOMA ADAMS 47/F [place] [id number] Dr. Anabell Keita, Specimen: [id number] Received: 04/24/23 Status: DENISE Solano Num: [id number] Spec Type: IMMUNO Subm Dr: Dr. Anabell Keita DO PHYSICIAN INSTITUTION [place] [address] SPECIMEN INFORMATION: Tissue Source: A - Cervix/endocervix, biopsy Clinical Info: N87.0, R87.810 Specimen Number: [id number] CPT code: 13308, 33830 METHODOLOGY: Deparaffinized sections of prefer/formalin-fixed tissue or PAP/DQ stained slides are incubated with monoclonal/polyclonal antibodies/oligonucleot cora probes. Localization is made via biotin free immunoperoxidase method. Appropriate controls are performed and reacted as expected. Results on target cell population are indicated in the following table: RESULTS: ANTIBODY / CLONE RESULT Block A P16 (E6H4) positive, focal, patchy Ki-67 (30-9) positive, low These tests were developed and their performance characteristics determined by [facility]. They may not have been cleared or approved by the U.S. Food and Drug Administration. The FDA has determined that such clearance or approval is not necessary. The above immunohistochemical/hallie Vincenzo markers are ordered and reviewed by the Pathologist. INTERPRETATION: A. Cervix/endocervix, biopsy: Focal HPV change present. AM:skip 04/25/2023 Signed (signature on file) Dr. Bolivar Aguillon, 04/25/23 1400 Normal [facility] Comment on above: Performed By: #### P P16 #### [facility] [address] [place], [place], [address] PAP IG HPV APTIMA 16/18,45on 04-03-2023 ADEQ Comment Normal . [facility] Comment on above: Order Comment: Speci men Comment: [id number] Specimen Comment: Source.............Cervix;Endocervix Specimen Comment: No. of containers..01 ThinPrep Vial Result Comment: Sati sfactory for evaluation. Endocervical and/or squamous metaplastic cells (endocervical component) are present. Performed By: #### L 7400.0280 #### [facility] [address] [place], [place], [address] COMM . Normal . [facility] Comment on above: Order Comment: Speci men Comment: [id number] Specimen Comment: Source.............Cervix;Endocervix Specimen Comment: No. of containers..01 ThinPrep Vial Performed By: #### L 7400.0280 #### [facility] [address] [place], [place], [address] COMMENT Comment Normal . [facility] Comment on above: Order Comment: Speci men Comment: [id number] Specimen Comment: Source.............Cervix;Endocervix Specimen Comment: No. of containers..01 ThinPrep Vial Result Comment: This liquid based ThinPrep(R) pap test was screened with the use of an image guided system. Performed By: #### L 7400.0280 #### [facility] [address] [place], [place], [address] DIAG Comment Abnormal . [facility] Comment on above: Order Comment: Speci men Comment: [id number] Specimen Comment: Source.............Cervix;Endocervix Specimen Comment: No. of containers..01 ThinPrep Vial Result Comment: EPIT HELIAL CELL ABNORMALITY. LOW GRADE SQUAMOUS INTRAEPITHELIAL LESION (LSIL). Performed By: #### L 7400.0280 #### [facility] [address] [place], [address] HPV APTIMA, HR Positive Abnormal Negative [facility] Comment on above: Order Comment: Speci men Comment: [id number] Specimen Comment: Source.............Cervix;Endocervix Specimen Comment: No. of containers..01 ThinPrep Vial Result Comment: This nucleic acid amplification test detects fourteen high- risk HPV types (16,18,31,33,35,39,45,51,52,56,58,59,66,68) without differentiation. Performed By: #### L 7400.0280 #### [facility] [address] [place], [place], [address] HPV Thania Rfx Comment Normal . [facility] Comment on above: Order Comment: Speci men Comment: [id number] Specimen Comment: Source.............Cervix;Endocervix Specimen Comment: No. of containers..01 ThinPrep Vial Result Comment: Crit eria not met, HPV Genotype not performed. Performed at: - [facility] [id number] Mental Health Therapist: Justine Roy MD, Phone: [phone] Performed at: = - [facility] [id number] Mental Health Therapist: Justine Roy MD, Phone: [phone] Performed By: #### L 7400.0280 #### [facility] [address] [place], [place], [address] PAPSMR Comment Normal . [facility] Comment on above: Order Comment: Speci men Comment: [id number] Specimen Comment: Source.............Cervix;Endocervix Specimen Comment: No. of containers..01 ThinPrep Vial Result Comment: The Pap smear is a screening test designed to aid in the detection of premalignant and malignant conditions of the uterine cervix. It is not a diagnostic procedure and should not be used as the sole means of detecting cervical cancer. Both false-positive and false-negative reports do occur. Performed By: #### L 7400.0280 #### [facility] [address] [place], [place], [address] Path.prov.IDC-9 Comment Normal . [facility] Comment on above: Order Comment: Speci men Comment: [id number] Specimen Comment: Source.............Cervix;Endocervix Specimen Comment: No. of containers..01 ThinPrep Vial Result Comment: R87. 612 Performed By: #### L 7400.0280 #### [facility] [address] [place], [place], [address] PERFORM Comment Normal . [facility] Comment on above: Order Comment: Speci men Comment: [id number] Specimen Comment: Source.............Cervix;Endocervix Specimen Comment: No. of containers..01 ThinPrep Vial Result Comment: Kevon Arroyo, Manager Of Sustainability (ASCP) Performed By: #### L 7400.0280 #### [facility] [address] [place], [place], [phone] RECOMM Comment Abnormal . [facility] Comment on above: Order Comment: Speci men Comment: [id number] Specimen Comment: Source.............Cervix;Endocervix Specimen Comment: No. of containers..01 ThinPrep Vial Result Comment: Sugg est follow up as clinically appropriate. Performed By: #### L 7400.0280 #### [facility] [address] [place], [place], [address] SIGN Comment Normal . [facility] Comment on above: Order Comment: Speci men Comment: [id number] Specimen Comment: Source.............Cervix;Endocervix Specimen Comment: No. of containers..01 ThinPrep Vial Result Comment: Lore Roy MD, Pathologist Performed By: #### L 7400.0280 #### [facility] [address] [place], [place], [address] Cervical or vagninal specime n microscopic examination by cytology stain (reported asOrdered By: Anabell Keita on 03-27-2023 Cytology report Cyto stain Doc (Cvx/Vag) Comment . [facility] Comment on above: The Pap smear is a s creening test designed to aid in thedetection of premalignant and malignant conditions of theuterine cervix. It is not a diagnostic procedure andshould not be used as the sole means of detecting cervicalcancer. Both false-positive and false-negative reports dooccur. Detection in cervical specim en of any of human papilloma virus (HPV) 16, 18, 31, 33,Ordered By: Anabell Keita on 03-27-2023 HPV 16+18+31+33+35+39+45+5 1+52+56+58+59+66+68 DNA Probe+sig amp Ql (Cvx) Positive Negative [facility] Comment on above: This nucleic acid am plification test detects fourteen high- risk HPV types (16,18,31,33,35,39,45,51,52,56,58,59,66,68)without differentiation. Laboratory - CytologyOrdered By: Anabell Keita on 03-27-2023 Food Bagging Machine Operator Cyto stain Nom (Cvx/Vag) [ID] Comment . [facility] Comment on above: Kevon Arroyo, Cytote chnologist (ASCP) Pathologist Cyto stain Nom (Cvx/Vag) [ID] Comment . [facility] Comment on above: Justine Roy MD, Pathologist Recommended follow-up Cyto stain Nom (Cvx/Vag) Comment . [facility] Comment on above: Suggest follow up as clinically appropriate. Laboratory - Miscellaneous t estsOrdered By: Anabell Keita on 03-27-2023 Service comment (Unsp spec) [Interp] Comment . [facility] Comment on above: This liquid based Th inPrep(R) pap test was screened withthe use of an image guided system. Service comment (Unsp spec) [Interp] . . [facility] Liquid-based cerv Pap + CT/G C by VIKTORIA w reflex to high-risk HPV for ASCUSOrdered By: Anabell Keita on 03-27-2023 Cytology report Cyto stain.thin prep Doc (Cvx/Vag) Comment . [facility] Comment on above: Criteria not met, HP V Genotype not performed.Performed at: - [facility] [id number] Director: Justine Roy MD, Phone: [phone] at: =[facility] [id number] Director: Justine Roy MD, Phone: [phone] No Panel InformationOrdered By: Anabell Keita on 03-27-2023 Pathology report final diagnosis Narrative Comment . [facility] Comment on above: EPITHELIAL CELL ABNO RMALITY.LOW GRADE SQUAMOUS INTRAEPITHELIAL LESION (LSIL). R87.612 Lockstitch Lining Setter Cytology Reporton 2021 Lockstitch Lining Setter Cytology Report . Pathology Reports Accession: Collected Date/Time: Received Date/Time: Pathologist: [id number] 11/06/2021 10:51 EDT 11/06/2021 18:00 BAIRON HARMAN MD Lockstitch Lining Setter Cytology Report SPECIMEN: Specimen Description: Liquid Prep w/ HPV Specimen: Cervical Screening or Diagnostic: Screening RELEVANT HISTORY: LMP: 10/09/21 [id number] SPECIMEN ADEQUACY: SATISFACTORY FOR EVALUATION ENDOCERVICAL/TRANSFORMA TIONAL ZONE COMPONENT PRESENT INTERPRETATION/RESULTS: LOW GRADE SQUAMOUS INTRAEPITHELIAL LESION HIGH RISK HPV TESTING: High Risk HPV Typing is Positive: High Risk HPV Types detected, other than HPV 16 or HPV 18. Specimen is positive for the DNA of any one of, or combination of., the following high risk HPV types: 31, 33, 35, 39, 45, 51, 52, 56, 58, 59, 66, 68. HPV types 16 and 18 DNA were undetectable or below the pre-set threshold. The carlos manuel High-Risk HPV DNA Test is not intended for use as a screening device for Pap normal women under age 30 and is not intended to substitute for regular Pap screening. The carlos manuel High-Risk HPV DNA Test is designed to augment existing methods for the detection of cervical disease and should be used in conjunction with clinical information derived from [facility] diagnostic and screening tests, physical examinations and full medical history in accordance with appropriate patient management procedures. NOTE: A negative result does not preclude the presence of HPV infection because results depend on adequate specimen collection, absence of inhibitors and sufficient DNA to be detected. COMMENT: This Pap Test was successfully processed and evaluated with the assistance of the [employer] Prep Test Imaging System. Electronically Signed by Pathology report verified by [facility] Screened by: DEB DW Electronically signed by BAIRON PITTMAN Sign-Out Date: 11/09/2021 13:54 Performing Lab: [facility], [address] [place] [address] Disclaimer The Pap test is a screening test for cervical cancer. As evidenced by published data, it is sub ject to both inherent false negative and false positive results. Your patient's results should be interpreted in context with pertinent clinical history including gynecological examination. Normal [facility] [place] HPVon 11-08-2021 HPV Interp Abnormal See Interp HPVN [facility] [place] Comment on above: Order Comment: Order placed by AP_HPV_ORDER rule from [id number] Result Comment: High Risk HPV Typing is Positive: High Risk HPV Types detected, other than HPV 16 or HPV 18. Specimen is positive for the DNA of any one of, or combination of, the following high risk HPV types: 31, 33, 35, 39, 45, 51, 52, 56, 58, 59, 66, 68. HPV types 16 and 18 DNA were undetectable or below the pre-set threshold. The carlos manuel High-Risk HPV DNA Test is not intended for use as a screening device for Pap normal women under age 30 and is not intended to substitute for regular Pap screening. The carlos manuel High-Risk HPV DNA Test is designed to augment existing methods for the detection of cervical disease and should be used in conjunction with clinical information derived from other diagnostic and screening tests, physical examinations and full medical history in accordance with appropriate patient management procedures. NOTE: A negative result does not preclude the presence of HPV infection because results depend on adequate specimen collection, absence of inhibitors and sufficient DNA to be detected. See Interp HPVO Performed By: #### H PV #### [address] [address] HPV Source Cervix Normal [facility] [place] Comment on above: Order Comment: Order placed by AP_HPV_ORDER rule from [id number] Performed By: #### H PV #### [address] [address] No Panel Informationon 08-28 POC SARS CoV-2 Antigen Positive [facility] Work Phone: Androstenedioneon 07-25-2018 Androstenedione 1.9 ng/mL Normal 0.3-3.3 [facility] Comment on above: Performed By: #### A NDROS ####[facility] [place], [place] [phone] B TestoSHBG,fem,chilon 07-08 Sex Hormon Bind Glb 29 nmol/L Low 30-135 [facility] Comment on above: Performed By: #### C OR ####[facility] [address] [place], [place] [phone] Testos Bioavail 8.9 ng/dL Normal 2.8-16.5 [facility] Comment on above: Performed By: #### C OR ####[facility] [place], [place] [phone] Testosterone Free 3.2 pg/mL Normal 1.1-5.8 [facility] Comment on above: Performed By: #### C OR ####[facility] [address] [place], [place] [phone] Testosterone mass conc 18 ng/dL Normal 9-55 [facility] Comment on above: Performed By: #### C OR ####[facility] [place], [place] [phone] Cortisolon 07-03-2018 Cortisol 0.5 ug/dL Normal [facility] Comment on above: Performed By: #### C OR ####[facility] [place], [place] [phone] 17[place]-Corticosteroidson 06-24 17OH-Cortico mg/g Cr 6.8 mg/gCR High 2.0-6.5 [facility] Comment on above: Performed By: #### U 17OHC ####[facility] [address] [place], [place] [phone] 17OH-Cortico per 24h 9.4 mg/d Normal 4.0-14.0 [facility] Comment on above: Performed By: #### U 17OHC ####[facility] [place], [place] [phone] Creat Ur, per 24h 1380 mg/d Normal 700-1600 [facility] Reference Lab Comment on above: Performed By: #### U 17OHC ####[facility] [address] [place], [place] [phone] Creat Ur, per volume 115 mg/dL Normal [facility] Lab Comment on above: Performed By: #### U 17OHC ####[facility] [address]qrxtdpr[address]Kcr[address] [address] [phone] Free Alexis, UR LCMSMSon 06-22 Collect Lgth, UFRCRT 24 hr Normal [facility] Lab Comment on above: Performed By: #### P V2, UFRCRT ####[facility] LaboratoriesProblem Humttihmre[address]CT[address] [place] [phone] Total Volume, UFRCRT 1200 mL Normal [facility] Comment on above: Performed By: #### P V2, UFRCRT ####[facility] LaboratoriesProblem [address] [place] [phone] UR Alexis Free Interp SEE NOTE Normal [facility] Lab Comment on above: Performed By: #### P V2, UFRCRT ####[facility] LaboratoriesProblem [address]pb[address]isp[address] [place] [phone] UR Alexis Free ug/d 48.8 ug/d High <=45.0 [facility] Lab Comment on above: Performed By: #### P V2, UFRCRT ####[facility] LaboratoriesProblem [address]lo[address] [place] [phone] UR Alexis Free ug/L 40.70 ug/L Normal [facility] Reference Lab Comment on above: Performed By: #### P V2, UFRCRT ####[facility] LaboratoriesProblem Mtxxs[address] AveClevelSherry [place] [phone] UR Cortisol ug/g prepress stripper 36.67 ug/g PROPERTY ASSESSMENT MONITOR Normal [facility] Lab Comment on above: Performed By: #### P V2, UFRCRT ####[facility] LaboratoriesProblem [address]cazxh[address] [place] [phone] UR, Creatinine mg/dL 111 mg/dL Normal [facility] Comment on above: Performed By: #### P V2, UFRCRT ####[facility] LaboratoriesProblem [address]qlbf[address] AveCNor[place], [place] [phone] UR,Creatinine mg/day 1332 mg/d Normal 700-1600 [facility] Lab Comment on above: Performed By: #### P V2, UFRCRT ####[facility] LaboratoriesProblem [address] AveCNorl[place], [place] [phone] 17[place]-Corticosteroidson 06-20 Hours Collected 24 Normal [facility] Lab Comment on above: Performed By: #### U 17OHC ####[facility] Ol[address]faflfNofqfrnuz[address], [place] [phone] Total Volume 1200 Normal [facility] Lab Comment on above: Performed By: #### U 17OHC ####[facility] [address]ngyceyplhlGtatszeht[address] Ave[place], [place] [phone] Period and Volumeon 06-17-20 18 Period 24 hr Normal [facility] Lab Comment on above: Performed By: #### P V2, UFRCRT ####[facility] LaboratoriesProblem [address]oyydicp[address] AveCNorl[place], [place] [phone] Volume 1200 mL Normal [facility] Comment on above: Performed By: #### P V2, UFRCRT ####[facility] LaboratoriesProblem Xdtcsmagvt[address] AveCNor[place], [place] [phone] Vital Signs Date Time Vital Sign Value Performing Clinician Reynaldo varela 02-08-2025 10:49-0400 Body mass index (BMI) [Ratio] 42.71 kg/m2 Bora Senior MD Work Phone: [facility] 02-08-2025 10:49-0400 Body weight 110.22 kg Bora Senior MD Work Phone: [facility] 06-30-2025 10:49-0400 Diastolic blood pressure 84 mm[Hg] Bora Senior MD Work Phone: [facility] 02-08-2025 10:49-0400 Systolic blood pressure 142 mm[Hg] Bora Senior MD Work Phone: [facility] 08-03-2024 12:28-0500 Body height 160.02 cm [employer] PA-C Work Phone: [facility] 08-03-2024 12:28-0500 Body mass index (BMI) [Ratio] 41.8 kg/m2 [employer] PA-C Work Phone: [facility] 08-03-2024 12:28-0500 Body temperature 97.8 [degF] Francie AMOtech PA-C Work Phone: [facility] 08-03-2024 12:28-0500 Body weight 107.04 kg [employer] PA-C Work Phone: [facility] 08-03-2024 12:28-0500 Diastolic blood pressure 72 mm[Hg] [employer] PA-C Work Phone: [facility] 08-03-2024 12:28-0500 Heart rate 83 /min [employer] PA-C Work Phone: [facility] 08-03-2024 12:28-0500 Respiratory rate 12 /min [employer] PA-C Work Phone: [facility] 08-03-2024 12:28-0500 SaO2% (BldA) [Mass fraction] 94 % [employer] PA-C Work Phone: [facility] 08-03-2024 12:28-0500 Systolic blood pressure 122 mm[Hg] [employer] PA-C Work Phone: [facility] 05-27-2024 14:22-0400 Body mass index (BMI) [Ratio] 43.06 kg/m2 Sonja Matamoros MD Work Phone: [facility] 05-27-2024 14:22-0400 Body weight 111.13 kg Sonja Matamoros MD Work Phone: [facility] 04-16-2024 14:55-0400 Body height 160.7 cm Sonja Matamoros MD Work Phone: [facility] 04-16-2024 14:55-0400 Body mass index (BMI) [Ratio] 43.41 kg/m2 Sonja Matamoros MD Work Phone: [facility] 04-16-2024 14:55-0400 Body weight 112.04 kg Sonja Matamoros MD Work Phone: [facility] 04-16-2024 14:55-0400 Diastolic blood pressure 78 mm[Hg] Sonja Matamoros MD Work Phone: [facility] 04-16-2024 14:55-0400 Systolic blood pressure 128 mm[Hg] Sonja Matamoros MD Work Phone: [facility] 08-28-2021 14:42-0500 Body temperature 97.1 [degF] PA-C [employer] PA Work Phone: [facility] Work Phone: 08-28-2021 14:42-0500 Diastolic blood pressure 78 mm[Hg] PA-C [employer] PA Work Phone: [facility] Work Phone: 08-28-2021 14:42-0500 Heart rate 73 /min PA-C [employer] PA Work Phone: [facility] Work Phone: 08-28-2021 14:42-0500 Respiratory rate 16 /min PA-C [employer] PA Work Phone: [facility] Work Phone: 08-28-2021 14:42-0500 SaO2% (BldA) [Mass fraction] 97 % PA-C [employer] PA Work Phone: [facility] Work Phone: 08-28-2021 14:42-0500 Systolic blood pressure 130 mm[Hg] TOM ORTIZ Work Phone: [facility] Work Phone: Encounters Encounter Date Encounter Type Care Provider Facility Start: 05-18-2025 ambulatory EARNESTINE HAYESF Facility: [facility] Start: 02-10-2025 End: 04-12-2025 Follow-up encounter Bora Senior MD Work Phone: OB/Gynecology Start: 02-08-2025 End: 02-08-2025 Patient encounter procedure Bora Senior MD Work Phone: OB/Gynecology Comment on above: Herpes, vulvar (Prim miri Dx) Start: 02-08-2025 End: 02-08-2025 ambulatory BORA SENIOR Facility:[facility] Start: 01-18-2025 ambulatory SAVI ANNE Facility:[facility] Start: 10-14-2024 End: 10-14-2024 ambulatory Francie ORTIZ-C Work Phone: [facility] Work Phone: Start: 10-14-2024 End: 10-14-2024 Patient encounter procedure Francie West PA-C -Laboratory Work Phone: Start: 10-14-2024 End: 10-14-2024 ambulatory Francie ORTIZ Facility:[facility] Start: 09-22-2024 ambulatory [facility] Start: 09-22-2024 End: 09-22-2024 ambulatory [facility] Start: 09-08-2024 End: 09-08-2024 ambulatory DIOR CHEEK NP Facility:[facility] Start: 08-03-2024 End: 08-03-2024 Patient encounter procedure Joon ORTIZ [facility] Work Phone: Start: 08-03-2024 End: 08-03-2024 ambulatory Joon ORTIZ Facility:[facility] Start: 05-27-2024 End: 05-27-2024 ambulatory SONJA MATAMOROS Facility:[facility] Start: 05-27-2024 End: 05-27-2024 Patient encounter procedure Sonja Matamoros MD Work Phone: OB/Gynecology Comment on above: Pap smear abnormalit y of cervix with LGSIL (Primary Dx); Cervical high risk human papillomavirus (HPV) DNA test positive; LGSIL on Pap smear of cervix Start: 05-14-2024 End: 05-14-2024 Telephone encounter Earnestine Zhao APRN.INJECTION WAX MOLDER Work Phone: OB/Gynecology Comment on above: Orders Start: 05-13-2024 End: 05-13-2024 Subsequent hospital visit by physician [facility] Work Phone: Radiology Comment on above: Abnormal mammogram [ R92.8] Start: 04-27-2024 End: 04-27-2024 Telephone encounter Earnestine hZao APRN.INJECTION WAX MOLDER Work Phone: OB/Gynecology Comment on above: Orders Start: 04-24-2024 End: 04-27-2024 Documentation procedure Mammography Coordinator [facility] Department Start: 04-24-2024 End: 04-27-2024 Letter encounter Mammography Coordinator [facility] Department Start: 04-24-2024 End: 04-27-2024 Telephone encounter Sonja Matamoros MD Work Phone: OB/Gynecology Comment on above: Abnormal Pap (/) Start: 04-21-2024 End: 04-22-2024 Documentation procedure Mammography Coordinator [facility] Department Start: 04-21-2024 End: 04-22-2024 Letter encounter Mammography Coordinator [facility] Department Start: 04-21-2024 End: 04-21-2024 Telephone encounter Rosy Flor MD Work Phone: Mammography Start: 04-17-2024 End: 04-17-2024 Patient encounter status [facility] Start: 04-17-2024 End: 04-17-2024 Subsequent hospital visit by [facility] Comment on above: Encounter for gyneco logical examination (general) (routine) without abnormal findings [Z01.419] Start: 04-16-2024 End: 04-16-2024 Patient encounter procedure Sonja Matamoros MD Work Phone: OB/Gynecology Comment on above: Encounter for gyneco logical examination (general) (routine) without abnormal findings (Primary Dx); Screening for cervical cancer; Encounter for screening for human papillomavirus (HPV); Encounter for screening mammogram for breast cancer; Cervical high risk human papillomavirus (HPV) DNA test positive; Class 3 severe obesity due to excess calories with serious comorbidity and body mass index (BMI) of 40.0 to 44.9 in adult ([facility]) Start: 04-16-2024 End: 04-16-2024 Patient encounter status Sonja Matamoros MD Work Phone: [facility] Start: 04-22-2023 End: 04-22-2023 Patient encounter procedure [facility]-Laboratory, 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 Start: 04-22-2023 End: 04-22-2023 ambulatory [facility] Work Phone: Start: 04-16-2023 ambulatory [facility] Facili ty:[facility] Start: 03-27-2023 End: 03-27-2023 Patient encounter procedure [facility]-Laboratory, Specimen Work Phone: Start: 03-27-2023 End: 03-27-2023 ambulatory Francie ORTIZ Facility:[facility] Start: 05-15-2022 End: 05-15-2022 ambulatory [facility] Work Phone: Start: 05-15-2022 End: 05-15-2022 Discharged Recurring [facility]-Physical Therapy Start: 12-12-2021 End: 12-12-2021 Patient encounter procedure TOM ORTIZ Work Phone: [facility]-Laboratory, Specimen Start: 08-28-2021 End: 08-28-2021 Patient encounter procedure TOM ORTIZ Work Phone: [facility] Procedures Date Procedure Procedure Detail Performing Clinician Start: 05-27-2024 UA DIP,URINE HCG (POC) Sonja Matamoros MD Work Phone: Start: 05-13-2024 Us breast uni real t joe with image limited Earnestine Zhao APRN.INJECTION WAX MOLDER Work Phone: Start: 05-13-2024 Digital breast tomosynthesis bilateral Sonja Matamoros MD Work Phone: Plan of Treatment Date Care Activity Detail Author Start: 05-13-2025 Screening for malign ant neoplasm of breast Mammogram Screening [facility] Start: 04-19-2025 End: 04-19-2025 Patient encounter procedure 04/19/2025 4:00 PM EDT Office Visit OB/Gynecology [address] [place], [place] [id number] Sonja Matamoros MD [address] [place] [id number] Annual OB/Gynecology Comment on above: Annual Start: 04-17-2025 Screening for malign ant neoplasm of breast Mammogram Screening [facility] Start: 04-16-2025 Screening for malign ant neoplasm of cervix Cervical Cancer Screening [facility] Start: 04-12-2025 Influenza vaccination [facility] Start: 02-08-2025 End: 05-10-2025 Herpes simplex virus+Varicella zoster virus DNA [Presence] in Unspecified specimen by VIKTORIA with probe detection [facility] Work Phone: Comment on above: Expected: 02/08/2025 , Expires: 05/10/2025 Start: 10-19-2024 End: 10-19-2024 Patient encounter procedure 10/19/2024 10:20 AM EDT Office Visit OB/Gynecology [address] [place], [place] [id number] Marie Steiner MD [address] [place] [phone] Consult to NEW WT MGMT OB/Gynecology Comment on above: Consult to NEW WT MG MT Start: 05-27-2024 End: 05-27-2024 Patient encounter procedure 05/27/2024 2:00 PM EDT Office Visit OB/Gynecology [address] [place] [address] Sonja Matamoros MD [address] [place] [address] rescheduled from 05/26 OB/Gynecology Comment on above: rescheduled from Start: 05-13-2024 End: 05-13-2024 Patient encounter procedure Mammogram Comment on above: bi breast callback(p t was informed that a comparison was recommended, and that the CB was pending bi breast callback(p t was informed that a comparison was recommended, and that the CB was pending) images available for comparison on 04/22/24 Start: 04-17-2024 End: 04-17-2024 Patient encounter procedure 04/17/2024 7:10 AM EDT Appointment Mammogram [address] [place] [address] Encounter for screening mammogram for breast cancer [Z12.31] Mammogram Comment on above: Encounter for screen ing mammogram for breast cancer [Z12.31] Start: 04-12-2024 Covid-19 Vaccine ( season) Covid-19 Vaccine ( season) [facility] Start: 04-12-2024 Covid-19 Vaccine ( season) Covid-19 Vaccine () [facility] Start: 04-12-2024 Influenza vaccination Influenza Vacc ine (#1) [facility] Start: 2020 Diabetes Screening Diabetes Screenin g [facility] Start: 2020 Lipid panel Lipid Screening [facility] Start: 2020 Screening for malign ant neoplasm of colon [facility] Start: 2015 Screening for malign ant neoplasm of breast Mammogram Screening [facility] Start: 07-25-2013 Screening for malign ant neoplasm of cervix Cervical Cancer Screening [facility] Start: 1994 Hepatitis B Vaccine (1 of 3 - 19+ 3-dose series) Hepatitis B Vaccine (1 of 3 - 19+ 3-dose series) [facility] Start: 1994 Urine microalbumin profile DTaP,Tdap,Td Vaccine (1 - Tdap) [facility] Start: 1993 Anxiety Screening Anxiety Screening [facility] Start: 1993 Depression Screening Depression Scre ening [facility] Start: 1993 Hepatitis C screening Hepatitis C Sc robert [facility] Start: 1993 HIV screening HIV Screening [facility] End: 05-16-2025 DBT Breast - bilateral screening CEM SCREENING W AUDREY Radiology Routine Encounter for gynecological examination (general) (routine) without abnormal findings Encounter for screening mammogram for breast cancer 1 Occurrences starting 04/16/2024 until 05/16/2025 [facility] Work Phone: Comment on above: 1 Occurrences starti ng 04/16/2024 until 05/16/2025 DBT Breast - bilater al screening CEM SCREENING W AUDREY Radiology Routine Encounter for gynecological examination (general) (routine) without abnormal findings Encounter for screening mammogram for breast cancer 04/17/2024 7:36 AM EDT [facility] Work Phone: End: 05-27-2025 MG Breast - bilateral Diagnostic CEM DIAGNOSTIC BILATERAL Radiology Routine Abnormal mammogram 1 Occurrences starting 04/27/2024 until 05/27/2025 [facility] Comment on above: 1 Occurrences starti ng 04/27/2024 until 05/27/2025 End: 06-13-2025 MG Breast - bilateral Diagnostic CEM DIAGNOSTIC BILATERAL Radiology Routine Abnormal mammogram 1 Occurrences starting 05/14/2024 until 06/13/2025 [facility] Comment on above: 1 Occurrences starti ng 05/14/2024 until 06/13/2025 End: 06-13-2025 MG Breast - right Diagnostic for implant CEM DIAGNOSTIC RIGHT Radiology Routine Category 3 mammography result with short follow-up interval suggested for probably benign finding 1 Occurrences starting 05/14/2024 until 06/13/2025 [facility] Work Phone: Comment on above: 1 Occurrences starti ng 05/14/2024 until 06/13/2025 PAP TEST PAP TEST Lab Rou josesito Encounter for gynecological examination (general) (routine) without abnormal findings Screening for cervical cancer Encounter for screening for human papillomavirus (HPV) Cervical high risk human papillomavirus (HPV) DNA test positive 04/16/2024 3:28 PM EDT [facility] SURGICAL PATHOLOGY SURGICAL PATH OLOGY Lab Routine Cervical high risk human papillomavirus (HPV) DNA test positive LGSIL on Pap smear of cervix Ordered: 05/27/2024 [facility] Work Phone: Comment on above: Ordered: 05/27/2024 End: 05-27-2025 US Breast - left limited US BREAST LTD LEFT Radiology Routine Abnormal mammogram 1 Occurrences starting 04/27/2024 until 05/27/2025 [facility] Comment on above: 1 Occurrences starti ng 04/27/2024 until 05/27/2025 End: 06-13-2025 US Breast - left limited US BREAST LTD LEFT Radiology Routine Abnormal mammogram 1 Occurrences starting 05/14/2024 until 06/13/2025 [facility] Comment on above: 1 Occurrences starti ng 05/14/2024 until 06/13/2025 End: 05-27-2025 US Breast - right limited US BREAST LTD RIGHT Radiology Routine Abnormal mammogram 1 Occurrences starting 04/27/2024 until 05/27/2025 [facility] Work Phone: Comment on above: 1 Occurrences starti ng 04/27/2024 until 05/27/2025 End: 06-13-2025 US Breast - right limited [facility] Comment on above: 1 Occurrences starti ng 05/14/2024 until 06/13/2025 Immunizations Immunization Date Immunization Notes Care Provider Jenna praks 06-26-2018 influenza, injectabl e, quadrivalent, contains preservative Sonja Matamoros MD Work Phone: [facility] 06-26-2018 influenza virus vacc ine, unspecified formulation Sonja Matamoros MD Work Phone: [facility] 05-12-2018 influenza, seasonal, injectable Sonja Matamoros MD Work Phone: [facility] 07-08-2017 influenza, injectabl e, quadrivalent, contains preservative Sonja Matamoros MD Work Phone: [facility] 06-09-2014 influenza, seasonal, injectable Sonja Matamoros MD Work Phone: [facility] 05-07-2013 influenza, seasonal, injectable Sonja Matamoros MD Work Phone: [facility] Payers Date Payer Category Payer Private Health Insurance MMO S [id number] 2023 Unknown [facility] [id number] 2023-Present [phone] [address] [place] [id number] Indemnity [id number] 2023 Self-pay [id number] 2023 Unknown [id number] 2004 Unknown SELF PAY INSURANCE [id number] 2004 Unknown [id number] 1975 Unknown [id number] 1975 Unknown [id number] 1975 Unknown [id number] Unknown [id number] Unknown [id number] Unknown [id number] Unknown [id number] Unknown [id number] Unknown [id number] Social History Date Type Detail [facility] Work Phone: Start: 1975 Sex Assigned At Female W [facility] Start: 04-16-2024 Tobacco smoking stat [facility] Never smoked tobacco [facility] Start: 04-16-2024 Tobacco use and exposure Smokeless tobacco non-user [facility] Start: 04-16-2024 End: 02-08-2025 Alcoholic beverage intake Current non-drinker of alcohol (finding) [facility] Start: 04-16-2024 End: 05-27-2024 History of Social function [facility] Start: 04-16-2024 End: 05-27-2024 Tobacco use panel [facility] Start: 07-13-2012 National Score (1-10 0), lower number is lower risk 60 [facility] Start: 1975 Sex assigned at Not on file [facility] if ever smoked [facility] Work Phone: Start: 10-28-2024 Sex Female (finding) [facility] Clinical Notes 03-27-2023 to 05-18-2025 Bora Senior MD - 02/08/2025 10:46 AM EDTPatient Sonja Pillai MD - 05/27/2024 2:21 PM EDTSJose Ramon hernandez Mammo Tech - 05/13/2024 2:00 PM EDT Note Date & Type Note Facility 05-18-2025 Note HNO ID: [id number] Author: YULIA BRENNAN RDMS Service: ? Author Type: Edge Gluer Type: Progress Notes Filed: 05/18/2025 16:44 Note Text: Radiology Service Progress Note PATIENT NAME: Toma Adams DATE OF SERVICE: May 18, 2025 TIME: 4:44 PM PATIENT IDENTITY VERIFICATION COMPLETED USING TWO (2) IDENTIFIERS: Name and Date of confirmed by patient verbally. FALL SCREENING: Has the patient had 2 falls in the last year or 1 fall with injury or currently using an Ambulatory Assistive Device (Walker, Cane, Wheelchair, Crutches, etc.)? No PATIENT GENDER DATA: Assigned female at . status: : No status: NO. PATIENT RELEVANT IMPLANT DATA REVIEWED: Not Applicable PATIENT PRESENTS WITH AN IMPLANTABLE OR ATTACHED HYDROPONICS GROWER: No RADIOLOGY DEPARTMENT: Ultrasound PERIPHERAL IV DATA: Not applicable SIGNED BY: Yulia Brennan RDMS May 18, 2025 4:44 PM [facility] 05-18-2025 Note HNO ID: [id number] Author: DANUTA BERRY RT(R) Service: ? Author Type: Technologist Type: Progress Notes Filed: 05/18/2025 16:06 Note Text: Radiology Service Progress Note PATIENT NAME: Toma Adams DATE OF SERVICE: May 18, 2025 TIME: 4:06 PM PATIENT IDENTITY VERIFICATION COMPLETED USING TWO (2) IDENTIFIERS: Name and Date of confirmed by patient verbally. FALL SCREENING: Has the patient had 2 falls in the last year or 1 fall with injury or currently using an Ambulatory Assistive Device (Walker, Cane, Wheelchair, Crutches, etc.)? No PATIENT GENDER DATA: Assigned female at . status: : No status: NO. PATIENT RELEVANT IMPLANT DATA REVIEWED: Not Applicable PATIENT PRESENTS WITH AN IMPLANTABLE OR ATTACHED HYDROPONICS GROWER: No RADIOLOGY DEPARTMENT: Mammography PERIPHERAL IV DATA: Not applicable SIGNED BY: RT Parisa(Sisi) May 18, 2025 4:06 PM [facility] 02-08-2025 Note HNO ID: [id number] Author: BORA SENIOR MD Service: ? Author Type: Physician Type: Progress Notes Filed: 02/08/2025 11:23 Note Text: Business Support Assistant offered: Patient accepts, visit chaperoned by Michelle Momin MA. Toma Adams is a 49 year old female who presents for problem visit with a 10 day hx of a painful labial lesion on the left labia. . 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 History Comments: Sexual Activity: Yes; Male Contraception: Not used PAST MEDICAL HISTORY Diagnosis Date Cervical high risk HPV (human papillomavirus) test positive 04/03/2023 LGSIL on Pap smear of cervix 04/03/2023 PAST SURGICAL HISTORY Procedure Laterality Date PAST SURGICAL HISTORY OF sphincterplasty PAST SURGICAL HISTORY OF Left wrist surgery VAGINOSCOPY 04/2023 negative FAMILY HISTORY Problem Relation Age of Onset Diabetes Mother Hypertension Father Cancer Maternal Grandmother Cancer Maternal Grandfather Cancer Paternal Grandmother Cancer Paternal Grandfather Social History Tobacco Use Smoking status: Never Smokeless tobacco: Never Vaping Use Vaping status: Never Used Substance Use Topics Alcohol use: No Drug use: No Current Outpatient Medications Medication Sig spironolactone (ALDACTONE) 50 mg tablet Take 1 tablet by mouth every 12 hours. metoprolol succinate ER (TOPROL XL) 50 mg 24 hr tablet Take 1 tablet by mouth every afternoon. ARIPiprazole (ABILIFY) 5 mg tablet Take 1 tablet by mouth every afternoon. metFORMIN ER (GLUCOPHAGE XR) 500 mg 24 hr tablet Take 2 tablets by mouth every 12 hours. FLUoxetine (PROZAC) 40 mg capsule Take 1 capsule by mouth every afternoon. No current facility-administered medications for this visit. Allergies As of Date: 02/08/2025 (No Known Allergies) Fully Assessed 02/08/2025 REVIEW OF SYSTEMS Abdomen: No bloating, early satiety, indigestion, or increased flatulence. No abdominal pain, nausea, vomiting, diarrhea, or constipation. Bladder: No dysuria, gross hematuria, urinary frequency, urinary urgency, or incontinence. Breast: No breast lumps, nipple d/c, overlying skin changes, redness or skin retraction. Expanded ROS: N/A Allergies and current medication updated:Yes SENSITIVE EXAM: The sensitive examination was discussed with the Patient or Patient's Authorized Robotics Specialist. As applicable, any other physician, advance practice provider, medical student, or other health professional student that will be observing or involved in the sensitive examination for educational or training purposes was discussed with the Patient or Authorized Robotics Specialist. The Patient or Authorized Robotics Specialist has agreed to proceed with the sensitive examination. (Sensitive examination includes inspection and/or palpation of the breasts, pelvis, prostate and anorectal regions). EXAM: BP 142/84 Wt 243 lb (110.2kg) LMP 11/11/2023 GENERAL: pleasant, female in no apparent distress external genitalia with herpetic appearing lesion on the left labia major. ASSESSMENT AND PLAN: Herpes culture Valtrex pending culture Assessment AND Plan Bora Senior MD [facility] 02-08-2025 History of Presen t illness Narrative Business Support Assistant offered: Patient accepts, visit chaperoned by Michelle Momin MA. Toma Adams is a 49 year old female who presents for problem visit with a 10 day hx of a painful labial lesion on the left labia. . 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 History Comments: Sexual Activity: Yes; Male Contraception: Not used PAST MEDICAL HISTORY Diagnosis Date Cervical high risk HPV (human papillomavirus) test positive 04/03/2023 LGSIL on Pap smear of cervix 04/03/2023 PAST SURGICAL HISTORY Procedure Laterality Date PAST SURGICAL HISTORY OF sphincterplasty PAST SURGICAL HISTORY OF Left wrist surgery VAGINOSCOPY 04/2023 negative FAMILY HISTORY Problem Relation Age of Onset Diabetes Mother Hypertension Father Cancer Maternal Grandmother Cancer Maternal Grandfather Cancer Paternal Grandmother Cancer Paternal Grandfather Social History Tobacco Use Smoking status: Never Smokeless tobacco: Never Vaping Use Vaping status: Never Used Substance Use Topics Alcohol use: No Drug use: No Current Outpatient Medications Medication Sig spironolactone (ALDACTONE) 50 mg tablet Take 1 tablet by mouth every 12 hours. metoprolol succinate ER (TOPROL XL) 50 mg 24 hr tablet Take 1 tablet by mouth every afternoon. ARIPiprazole (ABILIFY) 5 mg tablet Take 1 tablet by mouth every afternoon. metFORMIN ER (GLUCOPHAGE XR) 500 mg 24 hr tablet Take 2 tablets by mouth every 12 hours. FLUoxetine (PROZAC) 40 mg capsule Take 1 capsule by mouth every afternoon. No current facility-administered medications for this visit. Allergies As of Date: 02/08/2025 (No Known Allergies) Fully Assessed 02/08/2025 REVIEW OF SYSTEMS Abdomen: No bloating, early satiety, indigestion, or increased flatulence. No abdominal pain, nausea, vomiting, diarrhea, or constipation. Bladder: No dysuria, gross hematuria, urinary frequency, urinary urgency, or incontinence. Breast: No breast lumps, nipple d/c, overlying skin changes, redness or skin retraction. Expanded ROS: N/A Allergies and current medication updated:Yes SENSITIVE EXAM: The sensitive examination was discussed with the Patient or Patient's Authorized Robotics Specialist. As applicable, any other physician, advance practice provider, medical student, or other health professional student that will be observing or involved in the sensitive examination for educational or training purposes was discussed with the Patient or Authorized Robotics Specialist. The Patient or Authorized Robotics Specialist has agreed to proceed with the sensitive examination. (Sensitive examination includes inspection and/or palpation of the breasts, pelvis, prostate and anorectal regions). EXAM: BP 142/84 Wt 243 lb (110.2kg) LMP 11/11/2023 GENERAL: pleasant, female in no apparent distress external genitalia with herpetic appearing lesion on the left labia major. ASSESSMENT AND PLAN: Herpes culture Valtrex pending culture Assessment & Plan Bora Senior MD documented in this encounter [facility] 05-27-[address] Idania rasmussen ewed the case in intradepartmental consultation with concurrence. [facility] Comment on above: Order Comment: Speci men Type: TISSUE SPECIMEN Ordering Facility: [facility] Address: [address] [place] [address] Performed By: #### S #### [facility] CLIA [id number] [address] [place] [address] [place] 05-27-2024 Instructions Aby Villela LPN - 05/27/2024 2:23 PM EDT YOUR RECOVERY It may take a few weeks for your cervix to heal. While your cervix heals, you may have: - Vaginal bleeding (less than a normal menstrual period) - Mild cramping - A brown-black vaginal discharge (similar to coffee grounds) which is a result of the paste used to help stop bleeding from the procedure Do NOT put anything in the vagina for 1 week after your colposcopy if your doctor does a biopsy of your cervix. This includes sex, tampons, and douches. If you have any discomfort, you may take an over the counter pain medication (motrin, advil, ibuprofen, tylenol, etc). If this does not relieve your discomfort, contact your doctor's office for a prescription strength pain medication. It is okay to wear a sanitary pad until the discharge and spotting stops. RISKS Although problems seldom occur with colposcopy, there can be some complications. You may feel faint during and shortly after the procedure as well as have some bleeding and vaginal discharge after the procedure. There is also a risk of infection after the procedure. These complications are rare and can be easily treated. You should contact you doctor is you have any of the following: - Heavy bleeding (more than your normal period) - Bleeding with clots - Severe abdominal pain - Fever (more than 100.4F) - Foul smelling vaginal discharge RESULTS If a biopsy was taken, we will have the results of your biopsy in 1-2 weeks. If you do not hear the results of your biopsy after 2 weeks, please contact your physicians office for the results. Depending on the biopsy results, your doctor will determine your follow up plan which may include further testing or treatments. STAYING HEALTHY After the procedure, you will need to see your doctor for follow up visits during the year. At these visits your doctor will check the health of your cervix with a pap smear. After three normal pap smears, your doctor will allow you to return to having exams once a year. If you have another abnormal pap smear, you may need closer follow up for longer or you may need additional treatment. By making a few lifestyle changes after the procedure, you can help protect the health of your cervix: - Have regular pelvic exams and pap smears as ordered by your doctor. - Stop smoking as smoking increases your risk of developing a cancer of the cervix - If you have more than one sexual partner, limit your number of partners and use condoms to reduce your risks of STDs. If you have any additional questions, please contact your doctor's office. documented in this encounter [facility] 05-27-2024 Note HNO ID: [id number] Author: SONJA MATAMOROS MD Service: ? Author Type: Physician Type: Progress Notes Filed: 05/27/2024 14:44 Note Text: Toma is a 48 year old who presents today for a colposcopy. The patient's last pap smear was LGSIL from March 2023. Patient has a history of abnormal pap: Yes. The patient has had prior treatment: none. test: negative UNIVERSAL PROTOCOL / SAFETY CHECKLIST Procedure to be Performed: colposcopy with possible biopsies Sign In: A Moment of CARE was completed. Personnel directly involved with the procedure wore the appropriate PPE (Personal Protective Equipment). Patient/Surrogate Stated/Verified: PATIENT VERIFIED(optional for EMERGENT procedures): Patient name, Date of , Relevant allergies, and The intended procedure Time Out Communication: Intended patient and procedure match the source documents. Consent documented and matches the intended procedure. Relevant labs, photos, and/or imaging studies have been reviewed. No implant(s) inserted. Sign Out: SIGN OUT (optional for EMERGENT procedures): All specimen containers correctly labeled. All instruments, equipment, possible retained foreign bodies accounted for. Post-procedure follow-up management communicated and Plan of Care Visit completed when applicable. PROCEDURE: EXTERNAL GENITALIA: Normal in appearance without lesions VAGINA: Normal in appearance without lesions CERVIX: Speculum placed in vagina and excellent visualization of cervix achieved. Cervix swabbed x 3 with 3% acetic acid solution. Cervix grossly normal. Squamocolumnar junction visualized. acetowhite changes noted posterior lip of cervix, punctations noted -none, mosaicism noted 4-7 oclock, and atypical vasculature noted -none. BIOPSY: Done at 3:00, 6:00, 9:00, and 12:00 ECC: done HEMOSTASIS: Obtained with silver nitrate Procedure Summary: Patient tolerated procedure well and colposcopy was adequate. ASSESSMENT: HPV effect PLAN: Specimens labeled and sent to Pathology. Will notify patient of results in 1-2 weeks. Post-procedure instructions reviewed and written material given to the patient. If indicated, lesion by colpo is amenable to office LEEP as lesion is small. Sonja Matamoros MD [facility] 05-27-2024 History of Presen t illness Narrative Toma is a 48 year old who presents today for a colposcopy. The patient's last pap smear was LGSIL from March 2023. Patient has a history of abnormal pap: Yes. The patient has had prior treatment: none. test: negative UNIVERSAL PROTOCOL / SAFETY CHECKLIST Procedure to be Performed: colposcopy with possible biopsies Sign In: A Moment of CARE was completed. Personnel directly involved with the procedure wore the appropriate PPE (Personal Protective Equipment). Patient/Surrogate Stated/Verified: PATIENT VERIFIED(optional for EMERGENT procedures): Patient name, Date of , Relevant allergies, and The intended procedure Time Out Communication: Intended patient and procedure match the source documents. Consent documented and matches the intended procedure. Relevant labs, photos, and/or imaging studies have been reviewed. No implant(s) inserted. Sign Out: SIGN OUT (optional for EMERGENT procedures): All specimen containers correctly labeled. All instruments, equipment, possible retained foreign bodies accounted for. Post-procedure follow-up management communicated and Plan of Care Visit completed when applicable. PROCEDURE: EXTERNAL GENITALIA: Normal in appearance without lesions VAGINA: Normal in appearance without lesions CERVIX: Speculum placed in vagina and excellent visualization of cervix achieved. Cervix swabbed x 3 with 3% acetic acid solution. Cervix grossly normal. Squamocolumnar junction visualized. acetowhite changes noted posterior lip of cervix, punctations noted -none, mosaicism noted 4-7 oclock, and atypical vasculature noted -none. BIOPSY: Done at 3:00, 6:00, 9:00, and 12:00 ECC: done HEMOSTASIS: Obtained with silver nitrate Procedure Summary: Patient tolerated procedure well and colposcopy was adequate. ASSESSMENT: HPV effect PLAN: Specimens labeled and sent to Pathology. Will notify patient of results in 1-2 weeks. Post-procedure instructions reviewed and written material given to the patient. If indicated, lesion by colpo is amenable to office LEEP as lesion is small. Sonja Matamoros MD documented in this encounter [facility] 05-13-2024 History of Presen t illness Narrative Radiology Service Progress Note PATIENT NAME: Toma Adams DATE OF SERVICE: May 13, 2024 TIME: 2:45 PM PATIENT IDENTITY VERIFICATION COMPLETED USING TWO (2) IDENTIFIERS: Name and Date of confirmed by patient verbally. FALL SCREENING: Has the patient had 2 falls in the last year or 1 fall with injury or currently using an Ambulatory Assistive Device (Walker, Cane, Wheelchair, Crutches, etc.)? No PATIENT GENDER DATA: Female. status: : No status: NO. PATIENT RELEVANT IMPLANT DATA REVIEWED: Not Applicable PATIENT PRESENTS WITH AN IMPLANTABLE OR ATTACHED HYDROPONICS GROWER: No RADIOLOGY DEPARTMENT: Mammography PERIPHERAL IV DATA: Not applicable SIGNED BY: Robbie Patel May 13, 2024 2:45 PM documented in this encounter [facility] 04-27-2024 Telephone encounter Note Pt called back and colposcopy scheduled with RR on 05/26/24. 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 Dora Torrez RN [facility] 04-27-2024 Miscellaneous Notes Pt called back and colposcopy scheduled with RR on 05/26/24. 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 Dora Torrez RN Left message to call office. Char Blanco RN ----- Message from Sonja Matamoros MD sent at 04/24/2024 12:14 PM EDT ----- Please schedule colp. w/ me. Mychart message sent. documented in this encounter [facility] 04-24-2024 Miscellaneous Notes April 24, 2024 PID: [id number] Toma Adams [address] [place] [address] Dear , Your recent breast imaging exam on 04/17/2024 showed a possible finding that requires additional imaging studies for a complete evaluation. Most such findings are probably benign (not cancer). Breast tissue can be either dense or not dense. Dense tissue makes it harder to find breast cancer on a mammogram and also raises the risk of developing breast cancer. Your breast tissue is dense. In some people with dense tissue, other imaging tests in addition to a mammogram may help find cancers. Talk to your healthcare provider about breast density, risks for breast cancer, and your individual situation. If you have a healthcare provider who ordered/prescribed your screening mammogram: Please call [phone] or [phone]: [phone] to schedule an appointment for your additional imaging (if you have not already done so). If you DO NOT have a healthcare provider (ie you did not have an order/prescription for your screening mammogram): Please call to schedule an appointment for your additional imaging (if you have not already done so). You must have an order/prescription from your physician when calling to schedule your appointment. If your order/prescription is not electronic, you must bring the hard copy with you on the day of your exam to avoid delays. Your imaging studies and reports are kept on file at [facility] as part of your permanent medical record, and are available for your continuing care. Thank you for allowing us to help in meeting your health care needs. Sincerely, Dr. Flor Interpreting Radiologist [facility] (Additional imaging) documented in this encounter [facility] 04-24-2024 Note Formatting of this n ote might be different from the original. April 24, 2024 PID: [id number] Toma Adams [address] [place] [address] Dear , Your recent breast imaging exam on 04/17/2024 showed a possible finding that requires additional imaging studies for a complete evaluation. Most such findings are probably benign (not cancer). Breast tissue can be either dense or not dense. Dense tissue makes it harder to find breast cancer on a mammogram and also raises the risk of developing breast cancer. Your breast tissue is dense. In some people with dense tissue, other imaging tests in addition to a mammogram may help find cancers. Talk to your healthcare provider about breast density, risks for breast cancer, and your individual situation. If you have a healthcare provider who ordered/prescribed your screening mammogram: Please call [phone] or [phone]: [phone] to schedule an appointment for your additional imaging (if you have not already done so). If you DO NOT have a healthcare provider (ie you did not have an order/prescription for your screening mammogram): Please call to schedule an appointment for your additional imaging (if you have not already done so). You must have an order/prescription from your physician when calling to schedule your appointment. If your order/prescription is not electronic, you must bring the hard copy with you on the day of your exam to avoid delays. Your imaging studies and reports are kept on file at [facility] as part of your permanent medical record, and are available for your continuing care. Thank you for allowing us to help in meeting your health care needs. Sincerely, Dr. Flor Interpreting Radiologist [facility] (Additional imaging) [facility] 04-24-2024 Telephone encounter Note Left message to call office. Char Blanco RN [facility] 04-24-2024 Telephone encounter Note ----- Message from Sonja Matamoros MD sent at 04/24/2024 12:14 PM EDT ----- Please schedule colp. w/ me. Mychart message sent. [facility] 04-21-2024 Telephone encounter Note Patient called to schedule CB imaging. (pt was informed that a comparison was recommended, and that the CB was pending [facility] Work Phone: 04-21-2024 Miscellaneous Notes Patient called to schedule CB imaging. (pt was informed that a comparison was recommended, and that the CB was pending documented in this encounter [facility] 04-21-2024 Note Formatting of this n ote might be different from the original. April 22, 2024 PID: [id number] Toma Adams [address] [place] [address] Dear , Your breast imaging exam 04/17/2024 showed a possible finding that may require additional imaging studies for a complete evaluation. However, we recognize you have prior imaging studies at facilities other than [facility], and would like the opportunity to compare your recent imaging with those studies to evaluate for any change. At this time, we have requested your prior studies. Breast tissue can be either dense or not dense. Dense tissue makes it harder to find breast cancer on a mammogram and also raises the risk of developing breast cancer. Your breast tissue is dense. In some people with dense tissue, other imaging tests in addition to a mammogram may help find cancers. Talk to your healthcare provider about breast density, risks for breast cancer, and your individual situation. If/when your prior studies arrive, a final report will be sent to your healthcare provider and/or you. In addition, you will receive a new result letter and or phone call If you need additional imaging. If we do not receive prior studies within 30 days of your exam, you will receive a reminder letter and or phone call to schedule your diagnostic imaging. Your imaging studies and reports are kept on file at [facility] as part of your permanent medical record, and are available for your continuing care. If you have any questions or concerns, please call [phone]. Thank you for choosing [facility] for your imaging needs. Sincerely, Dr. Flor Interpreting Radiologist [facility] ([employer]) [facility] 04-21-2024 Miscellaneous Notes April 22, 2024 PID: [id number] Toma Adams [facility] [place] [address] Dear , Your breast imaging exam 04/17/2024 showed a possible finding that may require additional imaging studies for a complete evaluation. However, we recognize you have prior imaging studies at facilities other than [facility], and would like the opportunity to compare your recent imaging with those studies to evaluate for any change. At this time, we have requested your prior studies. Breast tissue can be either dense or not dense. Dense tissue makes it harder to find breast cancer on a mammogram and also raises the risk of developing breast cancer. Your breast tissue is dense. In some people with dense tissue, other imaging tests in addition to a mammogram may help find cancers. Talk to your healthcare provider about breast density, risks for breast cancer, and your individual situation. If/when your prior studies arrive, a final report will be sent to your healthcare provider and/or you. In addition, you will receive a new result letter and or phone call If you need additional imaging. If we do not receive prior studies within 30 days of your exam, you will receive a reminder letter and or phone call to schedule your diagnostic imaging. Your imaging studies and reports are kept on file at [facility] as part of your permanent medical record, and are available for your continuing care. If you have any questions or concerns, please call [phone]. Thank you for choosing [facility] for your imaging needs. Sincerely, Dr. Flor Interpreting Radiologist [facility] ([employer]) documented in this encounter [facility] 04-17-2024 History of Presen t illness Narrative Radiology Service Progress Note PATIENT NAME: Toma Adams DATE OF SERVICE: April 17, 2024 TIME: 7:06 AM PATIENT IDENTITY VERIFICATION COMPLETED USING TWO (2) IDENTIFIERS: Name and Date of confirmed by patient verbally. FALL SCREENING: Has the patient had 2 falls in the last year or 1 fall with injury or currently using an Ambulatory Assistive Device (Walker, Cane, Wheelchair, Crutches, etc.)? No PATIENT GENDER DATA: Female. status: : No status: NO. PATIENT RELEVANT IMPLANT DATA REVIEWED: Not Applicable PATIENT PRESENTS WITH AN IMPLANTABLE OR ATTACHED HYDROPONICS GROWER: No RADIOLOGY DEPARTMENT: Mammography PERIPHERAL IV DATA: Not applicable SIGNED BY: RT Parisa(R) April 17, 2024 7:06 AM documented in this encounter [facility] 04-16-2024 History of Presen t illness Narrative Toma is a 48 year old who presents for an annual gynecologic exam with complaints, h/o abnormal paps. Menses spacing out . Had colposcopy w/ bx last year, no dysplasia Menses: menses spacing out about every 3-5 months. Not long but somewhat heavy and have always been. 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 History Comments: Sexual Activity: Yes; Male Contraception: None PAST MEDICAL HISTORY 04/03/2023: Cervical high risk HPV (human papillomavirus) test positive 04/03/2023: LGSIL on Pap smear of cervixPAST SURGICAL HISTORY No date: PAST SURGICAL HISTORY OF Comment: sphincterplasty No date: PAST SURGICAL HISTORY OF Comment: Left wrist surgery 04/2023: VAGINOSCOPY Comment: negative FAMILY HISTORY Problem Relation Age of Onset Diabetes Mother Hypertension Father Cancer Maternal Grandmother Cancer Maternal Grandfather Cancer Paternal Grandmother Cancer Paternal Grandfather SOCIAL HISTORY Social History Tobacco Use Smoking status: Never Smokeless tobacco: Never Vaping Use Vaping status: Never Used Substance Use Topics Alcohol use: No Drug use: No REVIEW OF SYSTEMS Abdomen: No abdominal pain, nausea, vomiting, diarrhea, or constipation. No bloating, early satiety, indigestion, or increased flatulence. Bladder: No dysuria, gross hematuria, urinary frequency, urinary urgency, or incontinence. Breast: No breast lumps, nipple d/c, overlying skin changes, redness or skin retraction. Allergies and current medication updated:Yes EXAM: BP 128/78 Ht 5' 3.25 (1.61m) Wt 247 lb (112.0kg) LMP 03/26/2024 BMI 43.38 kg/(m^2). GENERAL: pleasant, female in no apparent distress HEENT: Normocephalic, atraumatic, mucus membranes moist, and no lesions NECK: Supple, full range of motion, no adenopathy, and thyroid normal DERMATOLOGY: Normal, without lesions, non-icteric, and non-hirsute BREAST: soft, non-tender, symmetric, no dominant mass, normal nipple-areolar complex, no lymphadenopathy, and no nipple discharge CHEST: Normal inspiratory effort ABDOMEN: soft, non-tender, and no masses PELVIC: external genitalia normal, normal Bartholin's glands, urethra, Boody's glands, no vulvar lesions, no cervical lesions, good vaginal support, physiologic discharge present, normal appearing perineal body and perianal region BIMANUAL: uterus normal size, shape and consistency, no adnexal masses, and non-tender RECTOVAGINAL: deferred. NEURO: alert and oriented x3,exam grossly non-focal EXTREMITIES: normal ASSESSMENT/PLAN: 1) Health maintenance: Pap done with HPV. Mammogram ordered. 2) Contraception: vasectomy. Contraceptive options reviewed and information provided. 3) STD screening: Declined STD check. 4) Follow up one year or sooner as needed Sonja Matamoros MD documented in this encounter [facility] 03-27-2023 Note [facility] Pap Smear Specimen Adequacy March 27, 2023 4:21pm Comment . Satisfactory for evaluation. Endocervical and/or squamous metaplasticcells (endocervical component) are present. Comment on above: Satisfactory for brigette luation. Endocervical and/or squamous metaplasticcells (endocervical component) are present. Chief complaint+Reason for v isit Narrative Reason for Visit COVID-19 [facility] Work Phone: Evaluation note* Diagnosis Onset Date Resolution Status COVID-19 acute [facility] Work Phone: Evaluation noteNo assessment information available [facility] Work Phone: Evaluation note* Diagnosis Encounter for gynecological examination (general) (routine) without abnormal findings- Primary Screening for cervical cancer Screening for malignant neoplasm of the cervix Encounter for screening for human papillomavirus (HPV) Special screening examination for human papillomavirus (HPV) Encounter for screening mammogram for breast cancer Cervical high risk human papillomavirus (HPV) DNA test positive Class 3 severe obesity due to excess calories with serious comorbidity and body mass index (BMI) of 40.0 to 44.9 in adult (HCC) [facility] Diagnosis Encounter for gynecological examination (general) (routine) without abnormal findings Encounter for screening mammogram for breast cancer [facility] Diagnosis Abnormal mammogram- Primary Abnormal mammogram, unspecified [facility] Diagnosis Category 3 mammography result with short follow-up interval suggested for probably benign finding- Primary Inconclusive mammogram [facility] Diagnosis Abnormal mammogram Abnormal mammogram, unspecified [facility] Diagnosis Abnormal mammogram Abnormal mammogram, unspecified [facility] Diagnosis Pap smear abnormality of cervix with LGSIL- Primary Papanicolaou smear of cervix with low grade squamous intraepithelial lesion (LGSIL) Cervical high risk human papillomavirus (HPV) DNA test positive LGSIL on Pap smear of cervix documented [facility]* Diagnosis Herpes, vulvar- Primary Herpetic ulceration of vulva documented in this encounter [facility] for referral (narrative)* Diagnostic Procedure Only (Routine) - New Request Specialty Diagnoses / Procedures Referred By Contac t Referred To Contact [facility] Diagnoses Abnormal mammogram Procedures CEM DIAGNOSTIC BILATERAL DIAGNOSTIC MAMMOGRAPHY COMPUTER-AIDED DETCJ Earnestine Liu, TATA.INJECTION WAX MOLDER [address] [place] [address] [facility] [address] [place] [address] Referral ID Status Reason Start Date Expiration Date Visits Requested Visits Authorized [id number] New Request Auto-Generat ed Referral 04/27/2024 05/27/2025 1 1 * Diagnostic Procedure Only (Routine) - New Request Specialty Diagnoses / Procedures Referred By Contac t Referred To Contact [facility] Diagnoses Abnormal mammogram Procedures US BREAST LTD LEFT US BREAST UNI REAL TIME WITH IMAGE LIMITED Earnestine Zhao APRN.INJECTION WAX MOLDER [address] [place] [address] [facility] Imaging [address] [place] [phone] Referral ID Status Reason Start Date Expiration Date Visits Requested Visits Authorized [id number] New Request Auto-Generat ed Referral 04/27/2024 05/27/2025 1 1 * Diagnostic Procedure Only (Routine) - New Request Specialty Diagnoses / Procedures Referred By Jarrod t Referred To Contact [facility] Diagnoses Abnormal mammogram Procedures US BREAST LTD RIGHT US BREAST UNI REAL TIME WITH IMAGE LIMITED Earnestine Zhao APRN.INJECTION WAX MOLDER [address] [place] [address] [facility] [address] [place] [phone] Referral ID Status Reason Start Date Expiration Date Visits Requested Visits Authorized [id number] New Request Auto-Generat ed Referral 04/27/2024 05/27/2025 1 1 [facility] for referral (narrative)* Diagnostic Procedure Only (Routine) - New Request Specialty Diagnoses / Procedures Referred By Pallaviac t Referred To Contact [facility] Diagnoses Category 3 mammography result with short follow-up interval suggested for probably benign finding Procedures US BREAST LTD RIGHT US BREAST UNI REAL TIME WITH IMAGE LIMITED Earnestine Zhao APRN.INJECTION WAX MOLDER [address] [place] [address] [facility] [address] [place] [address] Referral ID Status Reason Start Date Expiration Date Visits Requested Visits Authorized [id number] New Request Auto-Generat ed Referral 05/14/2024 06/13/2025 1 1 * Diagnostic Procedure Only (Routine) - New Request Specialty Diagnoses / Procedures Referred By Contac t Referred To Contact [facility] Diagnoses Category 3 mammography result with short follow-up interval suggested for probably benign finding Procedures CEM DIAGNOSTIC RIGHT DIAGNOSTIC MAMMOGRAPHY COMPUTER-AIDED DETCJ [facility] Earnestine Zhao APRN.INJECTION WAX MOLDER [address] [place] [address] [facility] [address] [place] [address] Referral ID Status Reason Start Date Expiration Date Visits Requested Visits Authorized [id number] New Request Auto-Generat ed Referral 05/14/2024 06/13/2025 1 1 [facility] for referral (narrative)* Diagnostic Procedure Only (Routine) - New Request Specialty Diagnoses / Procedures Referred By Jarrod t Referred To Contact [facility] Diagnoses Abnormal mammogram Procedures CEM DIAGNOSTIC BILATERAL DIAGNOSTIC MAMMOGRAPHY COMPUTER-AIDED DETCJ Earnestine Zhao APRN.INJECTION WAX MOLDER [address] [place] [address] [facility] [address] [place] [address] Referral ID Status Reason Start Date Expiration Date Visits Requested Visits Authorized [id number] New Request Auto-Generat ed Referral 05/14/2024 06/13/2025 1 1 * Diagnostic Procedure Only (Routine) - New Request Specialty Diagnoses / Procedures Referred By Contac t Referred To Contact [facility] Diagnoses Abnormal mammogram Procedures US BREAST LTD LEFT US BREAST UNI REAL TIME WITH IMAGE LIMITED Earnestine Zhao APRN.CNP [address] [place] [address] [facility] [address] [place] [address] Referral ID Status Reason Start Date Expiration Date Visits Requested Visits Authorized [id number] New Request Auto-Generat ed Referral 05/14/2024 06/13/2025 1 1 * Diagnostic Procedure Only (Routine) - New Request Specialty Diagnoses / Procedures Referred By Contac t Referred To Contact [facility] Diagnoses Abnormal mammogram Procedures US BREAST LTD RIGHT US BREAST UNI REAL TIME WITH IMAGE LIMITED Earnestine Zhao APRN.CNP [address] [place] [address] [facility] [address] [place] [address] Referral ID Status Reason Start Date Expiration Date Visits Requested Visits Authorized [id number] New Request Auto-Generat ed Referral 05/14/2024 06/13/2025 1 1 [facility] for referral (narrative)* Diagnostic Procedure Only (Routine) - Closed Specialty Diagnoses / Procedures Referred By Contac t Referred To Contact [facility] Diagnoses Abnormal mammogram Procedures US BREAST LTD RIGHT US BREAST UNI REAL TIME WITH IMAGE LIMITED Earnestine Zhao APRN.INJECTION WAX MOLDER [address] [place] [address] [facility] [address] [place] [address] Referral ID Status Reason Start Date Expiration Date V isits Requested Visits Authorized [id number] Closed Auto-Generate d Referral 04/27/2024 05/27/2025 1 1 * Diagnostic Procedure Only (Routine) - Closed Specialty Diagnoses / Procedures Referred By Contac t Referred To Contact [facility] Diagnoses Abnormal mammogram Procedures US BREAST LTD LEFT US BREAST UNI REAL TIME WITH IMAGE LIMITED Earnestine Zhao APRN.CNP [address] [place] [address] [facility] [address] [place] [address] Referral ID Status Reason Start Date Expiration Date V isits Requested Visits Authorized [id number] Closed Auto-Generate d Referral 04/27/2024 05/27/2025 1 1 [facility] for referral (narrative)No reason for referral information availableWPro[facility] Work Phone: Reason for visit Narrative* Diagnostic Procedure Only (Routine) - Closed Specialty Diagnoses / Procedures Referred By Jarrod rodriguez Referred To Contact [facility] Diagnoses Encounter for gynecological examination (general) (routine) without abnormal findings Encounter for screening mammogram for breast cancer Procedures CEM SCREENING W AUDREY SCREENING DIGITAL BREAST TOMOSYNTHESIS BI SCREENING MAMMOGRAPHY BI 2-VIEW BREAST INC Sonja Benson MD [address] [place] [address] [facility] [address] [place] [address] Referral ID Status Reason Start Date Expiration Date V isits Requested Visits Authorized [id number] Closed Auto-Generate d Referral 04/16/2024 05/16/2025 1 1 [facility] for visit Narrative* Diagnostic Procedure Only (Routine) - Closed Specialty Diagnoses / Procedures Referred By Jarrod rodriguez Referred To Contact [facility] Diagnoses Abnormal mammogram Procedures US BREAST LTD LEFT US BREAST UNI REAL TIME WITH IMAGE LIMITED Earnestine Zhao APRN.INJECTION WAX MOLDER [address] [place] [address] [facility] [address] [place] [address] Referral ID Status Reason Start Date Expiration Date V isits Requested Visits Authorized [id number] Closed Auto-Generate d Referral 04/27/2024 05/27/2025 1 1 [facility] for visit Narrative* Diagnostic Procedure Only (Routine) - Closed Specialty Diagnoses / Procedures Referred By Jarrod t Referred To Contact [facility] Diagnoses Abnormal mammogram Procedures CEM DIAGNOSTIC LEFT DIAGNOSTIC MAMMOGRAPHY COMPUTER-AIDED DETCJ UNI Sonja Matamoros MD [address] [place] [address] [facility] [address] [place] [address] Referral ID Status Reason Start Date Expiration Date V isits Requested Visits Authorized [id number] Closed Auto-Generate d Referral 04/21/2024 05/21/2025 1 1 [facility] Summary Purpose Family History No Family History Records FoundNo Family History Records FoundNo Family History Records FoundNo Family History Records FoundNo Family History Records FoundNo Family History Records FoundNo Family History Records Found Advance Directives No Advanced Directives Records FoundNo Advanced Directives Records FoundNo Advanced Directives Records FoundNo Advanced Directives Records FoundNo Advanced Directives Records FoundNo Advanced Directives Records FoundNo Advanced Directives Records Found Chief Complaint and Reason for Visit Chief Complaint LUMBAR SPINE. RX HER E Chief Complaint Admit Date SINUS COMP/ST/COUGH August 03, 2024 12:13pm Reason for Referral Specialty Diagnoses / Procedures Referred By Jarrod rodriguez Referred To Contact Diagnoses Class 3 severe obesity due to excess calories with serious comorbidity and body mass index (BMI) of 40.0 to 44.9 in adult (HCC) Procedures CONSULT TO [facility] WEIGHT MANAGEMENT PROGRAM OFFICE/OUTPATIENT [facility] 60 MINUTES Sonja Matamoros MD [address] [place] [address] Referral ID Status Reason Start Date Expiration Date Visits Requested Visits Authorized [id number] Authorized PCP Requested Referral Auto-Generate d Referral 04/16/2024 04/16/2025 1 1 Specialty Diagnoses / Procedures Referred By Jarrod rodriguez Referred To Contact [facility] Diagnoses Encounter for gynecological examination (general) (routine) without abnormal findings Encounter for screening mammogram for breast cancer Procedures CEM SCREENING W AUDERY SCREENING DIGITAL BREAST TOMOSYNTHESIS BI SCREENING MAMMOGRAPHY BI 2-VIEW BREAST INC CAD Sonja Matamoros MD [address] [place] [address] [facility] Imaging [address] [place] [address] Referral ID Status Reason Start Date Expiration Date Visits Requested Visits Authorized [id number] Authorized Auto-Generat ed Referral 04/16/2024 05/16/2025 1 1 Additional Source Comments INFORMATION SOURCE (unrecogn ized section and content) DATE CREATED AUTHOR 07/27/2018 [facility] DATE CREATED AUTHOR AUTHOR'S ORGANIZ ATION 11/10/2021 [facility] ([place]) DATE CREATED AUTHOR AUTHOR'S ORGANIZ ATION 06/29/2023 [facility] DATE CREATED AUTHOR AUTHOR'S ORGANIZ ATION 09/26/2024 [facility] DATE CREATED AUTHOR AUTHOR'S ORGANIZ ATION 09/29/2024 [facility] DATE CREATED AUTHOR AUTHOR'S ORGANIZ ATION 01/24/2025 [facility] DATE CREATED AUTHOR AUTHOR'S ORGANIZ ATION 05/21/2025 [facility] Goals (unrecognized section and content) Goals may be documented in a n alternate sectionGoals may be documented in an alternate sectionGoals may be documented in an alternate sectionGoals may be documented in an alternate section Care Teams (unrecognized sec tion and content) Team Status: Active Member Role Status Dates Dr. Alfonso Ivey MD Family Provider Active Francie ORTIZ PA-C Primary Care Provider Active Team Status: Inactive Member Role Status Dates Francie ORTIZ PA-C Primary Care Provider Active Dr. Anabell Keita DO Attending Provider Active Team Status: Active Member Role Status Dates Francie ORTIZ PA-C Primary Care Provider Active Team Status: Inactive Member Role Status Dates Joon ORTIZ PA Attending Provider Active Start: August 03, 2024 End: August 03, 2024 Team Status: Inactive Member Role Status Dates Francie West PA PA-C Primary Care Provider Active Start: October 14, 2024 End: October 14, 2024 Francie ORTIZ PA-C Attending Provider Active Start: October 14, 2024 End: October 14, 2024 Francie ORTIZ PA-C Referring Provider Active Start: October 14, 2024 End: October 14, 2024 Source Comments (unrecognize d section and content) In the event this informatio n is protected by the Federal Confidentiality of Alcohol and Drug Abuse Patient Records regulations: The Federal rules restrict any use of the information to criminally investigate or prosecute any alcohol or drug abuse patient.[facility] the event this information is protected by the Federal Confidentiality of Alcohol and Drug Abuse Patient Records regulations: The Federal rules restrict any use of the information to criminally investigate or prosecute any alcohol or drug abuse patient.[facility] the event this information is protected by the Federal Confidentiality of Alcohol and Drug Abuse Patient Records regulations: The Federal rules restrict any use of the information to criminally investigate or prosecute any alcohol or drug abuse patient.[facility] Center[facility] the event this information is protected by the Federal Confidentiality of Alcohol and Drug Abuse Patient Records regulations: The Federal rules restrict any use of the information to criminally investigate or prosecute any alcohol or drug abuse patient.[facility] the event this information is protected by the Federal Confidentiality of Alcohol and Drug Abuse Patient Records regulations: The Federal rules restrict any use of the information to criminally investigate or prosecute any alcohol or drug abuse patient.[facility] the event this information is protected by the Federal Confidentiality of Alcohol and Drug Abuse Patient Records regulations: The Federal rules restrict any use of the information to criminally investigate or prosecute any alcohol or drug abuse patient.[facility] Center[facility] the event this information is protected by the Federal Confidentiality of Alcohol and Drug Abuse Patient Records regulations: The Federal rules restrict any use of the information to criminally investigate or prosecute any alcohol or drug abuse patient.[facility] Center[facility] the event this information is protected by the Federal Confidentiality of Alcohol and Drug Abuse Patient Records regulations: The Federal rules restrict any use of the information to criminally investigate or prosecute any alcohol or drug abuse patient.[facility] Center[facility] the event this information is protected by the Federal Confidentiality of Alcohol and Drug Abuse Patient Records regulations: The Federal rules restrict any use of the information to criminally investigate or prosecute any alcohol or drug abuse patient.[facility] Center[facility] the event this information is protected by the Federal Confidentiality of Alcohol and Drug Abuse Patient Records regulations: The Federal rules restrict any use of the information to criminally investigate or prosecute any alcohol or drug abuse patient.[facility] Center[facility] the event this information is protected by the Federal Confidentiality of Alcohol and Drug Abuse Patient Records regulations: The Federal rules restrict any use of the information to criminally investigate or prosecute any alcohol or drug abuse patient.[facility] Center[facility] the event this information is protected by the Federal Confidentiality of Alcohol and Drug Abuse Patient Records regulations: The Federal rules restrict any use of the information to criminally investigate or prosecute any alcohol or drug abuse patient.[facility] Center[facility] the event this information is protected by the Federal Confidentiality of Alcohol and Drug Abuse Patient Records regulations: The Federal rules restrict any use of the information to criminally investigate or prosecute any alcohol or drug abuse patient.[facility] Center[facility] the event this information is protected by the Federal Confidentiality of Alcohol and Drug Abuse Patient Records regulations: The Federal rules restrict any use of the information to criminally investigate or prosecute any alcohol or drug abuse patient.[facility] Reason for Visit (unrecogniz ed section and content) Reason Comments Yearly Exam Reason Comments Orders Reason Comments Abnormal Pap Reason Comments Orders Reason Comments Colposcopy Specialty Diagnoses / Procedures Referred By Jarrod t Referred To Contact [facility] Diagnoses LGSIL on Pap smear of cervix Cervical high risk HPV (human papillomavirus) test positive Procedures COLPOSCOPY COLPOSCOPY CERVIX BX CERVIX & ENDOCRV CURRETAGE Sonja Matamoros MD [address] [place] [address] [facility] [address] [place] [address] Referral ID Status Reason Start Date Expiration Date V isits Requested Visits Authorized [id number] Closed Auto-Generate d Referral 04/24/2024 04/24/2025 1 1 Reason Comments Vaginal Problem FOR RECORDS PERTAINING TO PATIENTS WHO ARE OR HAVE BEEN ENROLLED IN A CHEMICAL DEPENDENCY/SUBSTANCEABUSE PROGRAM, SOME INFORMATION MAY BE OMITTED. This clinical summary was aggregated from multiple sources. Caution should be exercised in using it in the provision of clinical care. This summary normalizes information from multiple sources, and as a consequence, information in this document may materially change the coding, format and clinical context of patient data. In addition, data may be omitted in some cases. CLINICAL DECISIONS SHOULD BE BASED ON THE PRIMARY CLINICAL RECORDS. [facility]. provides no warranty or guarantee of the accuracy or completeness of information in this document.
[2025-08-11 16:05] LABS: Mucous, Urine 0 SEEN /hpf (<or=2+)
[2025-08-11 16:08] LABS: Color, Urine Yellow (Yellow); Glucose, Dipstick Normal (Normal); Ketone-Dipstick Negative (Negative); Leukocyte Esterase-Dipstick 500 /ul (Negative); Nitrite-Dipstick Negative (Negative); Occult Blood-Urine Negative /ul (Negative); Protein-Dipstick 15 mg/dl (Negative); Specific Gravity, Urine 1.020 (1.002-1.030); Urine Bilirubin Dipstick Negative (Negative)
--- NOTE | 2025-08-11 16:10 | RAD_ITS ---
PROCEDURE: CHEST PA AND LATERAL 08/11/2025 REASON FOR EXAM: DIZZINESS TECHNIQUE: Procedure Code: RADCXR Modality: DX Procedure: CHEST PA AND LATERAL COMPARISON: None. FINDINGS: Lungs/Pleura: No focal consolidation, pneumothorax or pleural effusion. Heart/Mediastinum: Cardiomegaly. No significant vascular congestion. Bones/Soft tissues: No significant abnormality. RAD/Chest PA and Lateral IMPRESSION: Cardiomegaly. No acute pulmonary disease. Reading Location: [id number]
[2025-08-11 16:24] LABS: Magnesium 2.0 mg/dL (1.5-2.2); Troponin T High Sensitivity < 6 ng/L (<=14)
[2025-08-11 17:00] VITALS: BP 140/80; PULSE 71; RESP 16; O2SAT 98
[2025-08-11 17:03] LABS: Red Blood Cells-Urine 0-5 SEEN /hpf (0-5); Squamous Epithelial Cells - UA 10-25 SEEN /hpf (5-10)
[2025-08-11 17:13] LABS: Troponin T High Sens 2 HR < 6 ng/L (<=14)
[2025-08-11 18:17] VITALS: BP 140/80; PULSE 71; RESP 16; TEMP 36.6; O2SAT 98
== END 2025-08-11 18:18 | disposition home or self-care (01) ==
PROVIDERS: Emergency Provider Surgery; PCP Family Medicine; Visit Provider Surgery
DX: R42 Dizziness and giddiness (principal); R51.9 Headache, unspecified; W10.9XXA Fall (on) (from) unspecified stairs and steps, initial encounter
CPT/HCPCS: 70450; 70496; 70498; 71046; 80048; 81001; 83735; 84484; 85025; 87086; 87088; 93005; 99285; Q9967; A4216